=== PATIENT | male | born 1960 | race Caucasian/White ===

== ENCOUNTER 2017-11-10 15:36 | Emergency (ER) | payer OTHER | END 2017-11-10 17:35 | disposition home or self-care (01) | LOC: ER 15:36 | DX: S66.919A Strain of unspecified muscle, fascia and tendon at wrist and hand level, unspecified hand, initial encounter (principal); I10 Essential (primary) hypertension; I25.10 Atherosclerotic heart disease of native coronary artery without angina pectoris; N40.0 Benign prostatic hyperplasia without lower urinary tract symptoms; F10.10 Alcohol abuse, uncomplicated; X50.9XXA Other and unspecified overexertion or strenuous movements or postures, initial encounter; Y93.89 Activity, other specified; Y99.8 Other external cause status; Y92.89 Other specified places as the place of occurrence of the external cause | CPT/HCPCS: 73090; 73110; 99284 ==

== ENCOUNTER 2017-12-24 16:29 | Emergency (ER) | payer OTHER ==
[2017-12-24 16:50] LABS: ADD MAN DIFF? NO
[2017-12-24 16:53] LABS: BASO # 0.1 x10^3/uL (0.0-0.2); BASO % 1 % (0-3); EOS # 0.2 x10^3/uL (0.0-0.7); EOS % 3 % (0-3); HEMATOCRIT 43.8 % (39.0-53.0); LYMPH # 2.4 x10^3/uL (1.0-4.8); LYMPH % 35 % (24-48); MEAN CORPUSCULAR HEMOGLOBIN 32 pg (25-35); MEAN CORPUSCULAR HGB CONC 34 g/dL (31-37); MEAN CORPUSCULAR VOLUME 92 fL (79-100); MONO # 0.6 x10^3/uL (0.0-1.1); MONO % 9 % (0-9); NEUT # 3.6 x10^3uL (1.8-7.7); NEUT % 52 % (31-73); PLATELET COUNT 265 x10^3/uL (140-400); RED BLOOD COUNT 4.76 x10^6/uL (4.30-5.70); RED CELL DISTRIBUTION WIDTH 14.1 % (11.5-14.5); WHITE BLOOD COUNT 6.8 x10^3/uL (4.0-11.0)
[2017-12-24 17:02] LABS: PARTIAL THROMBOPLASTIN TIME 28 SEC (24-38); PROTHROMBIN TIME PATIENT 12.7 SEC (11.7-14.0)
[2017-12-24 17:03] LABS: ETHANOL 218 mg/dL (0-10)
[2017-12-24 17:08] LABS: ALBUMIN 3.2 g/dL (3.4-5.0); ALK PHOS 153 U/L (46-116); ALT (SGPT) 26 U/L (16-63); ANION GAP 12 (6-14); AST (SGOT) 29 U/L (15-37); BLOOD UREA NITROGEN 9 mg/dL (8-26); CALCIUM 8.2 mg/dL (8.5-10.1); CARBON DIOXIDE 24 mmol/L (21-32); CHLORIDE 102 mmol/L (98-107); CREATININE 0.8 mg/dL (0.7-1.3); DIRECT BILIRUBIN 0.1 mg/dL (0.0-0.2); GFR 100.7; GLUCOSE 90 mg/dL (70-99); SODIUM 138 mmol/L (136-145); TOTAL BILIRUBIN 0.4 mg/dL (0.2-1.0); TOTAL PROTEIN 7.4 g/dL (6.4-8.2)
[2017-12-24 17:11] LABS: LACTIC ACID 1.9 mmol/L (0.4-2.0)
[2017-12-24 17:11] LABS: POTASSIUM 2.8 mmol/L (3.5-5.1)
[2017-12-24] MEDS: MIDAZOLAM 100mg/100ml NS BAG 100 ML IV (17:13)
[2017-12-24] MEDS: MIDAZOLAM 100MG/100ML PREMIX 100 ML IV (17:13)
[2017-12-24 17:35] LABS: BILIRUBIN,URINE NEGATIVE (NEG); CLARITY,URINE CLEAR; COLOR,URINE YELLOW; GLUCOSE,URINE NEGATIVE (NEG); NITRITE,URINE NEGATIVE (NEG); PROTEIN,URINE NEGATIVE (NEG-TRACE); UROBILINOGEN,URINE 0.2 mg/dL (0.2 mg/dL)
[2017-12-24] MEDS: IV NORMAL SALINE 1000ML BAG 1,000 ML IV ×2 (17:35)
[2017-12-24] MEDS ORDERED: DIPHTH,PERTUSS(ACELL),TET TOX 0.5 ML DISP.SYRIN. VAX IM ×2 (17:36)
[2017-12-24] MEDS: ONDANSETRON PF 4 MG/2 ML VIAL. IV ×2 (17:38)
[2017-12-24 17:42] LABS: AMPHETAMINE/METHAMPHETAMINE POS (NEG); BACTERIA,URINE 0 /HPF (0-FEW); BARBITURATES NEG (NEG); BENZODIAZEPINES NEG (NEG); CANNABINOIDS POS (NEG); COCAINE NEG (NEG); ETHANOL, URINE POS (NEG); METHADONE NEG (NEG); OPIATES NEG (NEG); PHENCYCLIDINE NEG (NEG); RBC,URINE OCC /HPF (0-2); SQUAMOUS EPITHELIAL CELL,UR OCC /LPF; WBC,URINE 0 /HPF (0-4)
[2017-12-24] MEDS: DIPHTH,PERTUSS(ACELL),TET TOX 0.5 ML DISP.SYRIN. VAX IM ×2 (17:45)
[2017-12-24 17:53] LABS: BASE EXCESS ABG -2 mmol/L (-3-3); HCO3 ABG 23 mmol/L (21-28); PCO2 ABG 40 mmHg (35-46); PH ABG 7.37 (7.35-7.45); PO2 ABG 451 mmHg (75-108); SAT O2 ABG 99 % (92-99)
[2017-12-24 18:03] LABS: MAGNESIUM 2.1 mg/dL (1.8-2.4)
[2017-12-24] MEDS: POTASSIUM CL 40MEQ IN 0.9%NACL 1,000 ML IV (18:03)
[2017-12-24 18:24] LABS: POC GLUCOSE 80 mg/dL (70-99)
[2017-12-24] MEDS: PROPOFOL 50 ML IV ×2 (18:47)
[2017-12-24] MEDS ORDERED: ETOMIDATE 20 MG/10 ML VIAL. IV ×2 (20:07)
[2017-12-24] MEDS ORDERED: MIDAZOLAM HCL/PF 5 MG/5 ML VIAL. ×2 (20:08)
[2017-12-24] MEDS ORDERED: SUCCINYLCHOLINE 200 MG/10 ML VIAL. ×2 (20:08)
== END 2017-12-24 19:03 | disposition short-term general hospital (02) ==
LOC: ER 16:29
DX: S06.9X9A Unspecified intracranial injury with loss of consciousness of unspecified duration, initial encounter (principal); S09.90XA Unspecified injury of head, initial encounter (principal); J96.90 Respiratory failure, unspecified, unspecified whether with hypoxia or hypercapnia; I25.10 Atherosclerotic heart disease of native coronary artery without angina pectoris; F10.29 Alcohol dependence with unspecified alcohol-induced disorder; F10.229 Alcohol dependence with intoxication, unspecified; N40.0 Benign prostatic hyperplasia without lower urinary tract symptoms; I10 Essential (primary) hypertension; Z87.440 Personal history of urinary (tract) infections; F10.10 Alcohol abuse, uncomplicated; W22.8XXA Striking against or struck by other objects, initial encounter; Y93.89 Activity, other specified; Y99.8 Other external cause status; Y92.89 Other specified places as the place of occurrence of the external cause
CPT/HCPCS: 31500; 36415; 36600; 51702; 70450; 70486; 71045; 72125; 80048; 80076; 80307; 81001; 82805; 82962; 83605; 83735; 85025; 85610; 85730; 86850; 86900; 86901; 90471; 90715; 93005; 94002; 96365; 96368; 96375; 99284; 99291; G0480; J2250; J2405; J2704; J3480; J7030

== ENCOUNTER 2018-02-24 00:40 | Emergency (ER) | payer SELFPAY, OTHER ==
[2018-02-24] MEDS: HYDROcodone/APAP 5/325MG 1 TAB TABLET PO (01:40)
== END 2018-02-24 03:37 | disposition home or self-care (01) ==
LOC: ER 00:40
DX: S02.2XXA Fracture of nasal bones, initial encounter for closed fracture (principal); I25.10 Atherosclerotic heart disease of native coronary artery without angina pectoris; I10 Essential (primary) hypertension; F10.10 Alcohol abuse, uncomplicated; Y08.89XA Assault by other specified means, initial encounter; Y93.89 Activity, other specified; Y92.89 Other specified places as the place of occurrence of the external cause; Y99.8 Other external cause status
CPT/HCPCS: 70450; 70486; 99284

== ENCOUNTER 2019-05-29 20:38 | Emergency (ER) | payer SELFPAY ==
[~2019-05-29] VITALS: Ht 182.9 cm; Wt 104.3 kg
[~2019-05-29 20:38] MED LIST: AMLO5TAB4 PO; ASPI-630 PO; ATOR40TA59 PO; CLOP75TA57 PO; DICL2.5D EACHEYE; FLUO10CA13 PO; FLUO20TA11 PO; FLUT16SP NS; GABA300C18 PO; HYDR25CA PO; OXYC1TAB22 PO; OXYC1TAB7 PO; TAMS0.4C2 PO; TRAM50TA PO
[2019-05-29] MEDS ORDERED: LIDOCAINE 1% Multi-Dose 20 ML VIAL. ONE (20:55)
[2019-05-29 20:59] VITALS: BP 152/89
[2019-05-29] MEDS ORDERED: LIDOCAINE 2% 20 ML VIAL. IJ ONE (21:00)
--- NOTE | 2019-05-29 21:22 | PHYS DOC ---
Past Medical History Past Medical History: Abscess Additional Past Medical Histor: BPH Past Surgical History: Other Additional Past Surgical Histo: 2 STENTS PLACED, ABD SX, facial sx, nasal sx, knee sx, hip sx, hand sx Alcohol Use: Heavy Drug Use: Marijuana, Methamphetamine Adult General Chief Complaint Chief Complaint: HAND PROBLEM HPI HPI 58 year old male presents to the ER with lacerations to left index and middle finger just prior to arrival. Patient states he was working with a lawnmower trying to adjust the blade and subsequently cut his fingers. Unknown last tetanus shot. No allergies to medications. Patient does state he has been drinking today. He has a history of methamphetamine use. Patient was able to feel the tips of his fingers on examination. Patient has a chest pain, shortness breath, nausea, vomiting, abdominal pain, headache or visual changes All other ROS negative unless documented in HPI Review of Systems Review of Systems See Above Current Medications Current Medications Current Medications Medications (Trade) Dose Ordered Sig/Katherine Start Time Stop Time Status Last Admin Dose Admin Cefazolin Sodium 50 ml @ 100 mls/hr 1X ONCE 05/29/19 21:15 05/29/19 21:44 DC 05/29/19 22:15 100 MLS/HR Diphtheria/ Tetanus/Acell Pertussis (Boostrix) 0.5 ml ONCE ONCE 05/29/19 22:15 05/29/19 22:16 DC Lidocaine HCl (Lidocaine 1% 20ml Vial) 20 ml STK-MED ONCE 05/29/19 20:55 05/29/19 20:55 DC Allergies Allergies Allergies Coded Allergies Type Severity Reaction Last Updated Verified No Known Drug Allergies 06/24/15 No Physical Exam Physical Exam See Above Constitutional: Well developed, well nourished, non-toxic appearance. [] Cardiovascular:Heart rate regular rhythm, no murmur [] Lungs & Thorax: Bilateral breath sounds clear to auscultation [] Abdomen: Bowel sounds normal, soft, no tenderness, no masses, no pulsatile masses. [] Skin: Warm, dry, no erythema, no rash. [] Extremities: No tenderness, no cyanosis, no edema. Left hand examination reveals laceration appreciated to the index finger and middle finger on the volar aspect of his hand. The middle finger laceration is just above the PIP joint through the tip of his finger, index finger is distal to the DIP through the nail[] Neurologic: Alert and oriented X 3, no focal deficits noted. [] Psychologic: Affect normal, judgement normal, mood normal. [] Current Patient Data Vital Signs Vital Signs Date Time Temp Pulse Resp B/P (MAP) Pulse Ox O2 Delivery O2 Flow Rate FiO2 05/29/19 20:59 98.3 106 18 152/89 (110) 95 Room Air 98.3 EKG EKG [] Radiology/Procedures Radiology/Procedures [facility] [address] [id number] IMAGING REPORT Signed PATIENT: SAVANNAH MOHAN ACCOUNT: [id number] : 1960 LOCATION: ER AGE: 58 SEX: M EXAM STATUS: PRE ER ORD. PHYSICIAN: SHAHRIAR ESPARZA MD REASON: partial amputation of left middle finger and laceration to first digit PROCEDURE: HAND LEFT 2V Indication:Laceration to first digit. TECHNIQUE: 2 views of left hand COMPARISON: None FINDINGS/ impression: Moderately displaced fracture is seen of the distal aspect of the distal phalanx of the third and fourth finger. Moderate first MCP joint osteoarthritis. 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 Electronically signed by: Dylan Smith DO (05/29/2019 9:32 PM) [facility] DICTATED and SIGNED BY: DYLAN SMITH DO DATE: 05/29/192131 [] Course & Med Decision Making Course & Med Decision Making Pertinent Labs and Imaging studies reviewed. (See chart for details) []58 year old male presents to the ER with lacerations to left index and middle finger just prior to arrival. Patient states he was working with a lawnmower trying to adjust the blade and subsequently cut his fingers. Unknown last tetanus shot. No allergies to medications. Patient does state he has been drinking today. He has a history of methamphetamine use. Patient was able to feel the tips of his fingers on examination. Patient has a chest pain, shortness breath, nausea, vomiting, abdominal pain, headache or visual changes X-ray reveals evidence of moderately displaced fracture of the distal aspect of the third and fourth distal phalanx. There is evidence of open fracture appreciated to the middle finger. 1 g Ancef provided IV, irrigation with copious amounts of saline. We'll contact [facility] for hand surgeon refrigeration system installer for transfer. Discussed with triage nurse, awaiting call from hand surgeon Dr. Murguia. , discussed with Dr. Murguia patient will be transferred to [facility] emergency department, they will see him in the ER. Patient will remain nothing by mouth, he received 1 dose of Ancef as previously discussed. Patient requested POV at this time from my standpoint perfectly appropriate given his financial concerns. Dragon Disclaimer Dragon Disclaimer This electronic medical record was generated, in whole or in part, using a voice recognition dictation system. Departure Departure Impression: Primary Impression: Partial traumatic metacarpophalangeal amputation of unspecified finger, initial encounter Disposition: 05 TRANSFER OTHER Condition: STABLE Referrals: VENU BROWN MD (PCP) Patient Instructions: Fingertip Injuries and Amputations Additional Instructions: Transferred to [facility] emergency department Take antibioitics, if prescribed as directed Remain nothing by mouth SHAHRIAR ESPARZA MD May 29, 2019 21:22
--- NOTE | 2019-05-29 21:35 | RAD ---
Indication:Laceration to first digit. TECHNIQUE: 2 views of left hand COMPARISON: None FINDINGS/ impression: Moderately displaced fracture is seen of the distal aspect of the distal phalanx of the third and fourth finger. Moderate first MCP joint osteoarthritis. 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 Electronically signed by: Dylan Smith DO (05/29/2019 9:32 PM) [facility]
[2019-05-29] MEDS ORDERED: DIPHTH,PERTUSS(ACELL),TET TOX 0.5 ML DISP.SYRIN. VAX IM ONE (22:15)
== END 2019-05-29 23:21 | disposition short-term general hospital (02) ==
LOC: ER 20:38
DX: S62.633A Displaced fracture of distal phalanx of left middle finger, initial encounter for closed fracture (principal); S62.635A Displaced fracture of distal phalanx of left ring finger, initial encounter for closed fracture; Z95.5 Presence of coronary angioplasty implant and graft; F10.20 Alcohol dependence, uncomplicated; Y90.9 Presence of alcohol in blood, level not specified; W31.89XA Contact with other specified machinery, initial encounter; Y93.H2 Activity, gardening and landscaping; Y92.89 Other specified places as the place of occurrence of the external cause; Y99.8 Other external cause status
CPT/HCPCS: 73120; 90471; 90715; 96365; 99285; J0690

== ENCOUNTER 2019-10-19 13:54 | Emergency (ER) | payer SELFPAY ==
[~2019-10-19] VITALS: Ht 182.9 cm; Wt 104.5 kg
[2019-10-19 14:06] VITALS: BP 168/112
[2019-10-19] MEDS ORDERED: methylPREDNISolone SOD SUCC PF 125 MG/2 ML VIAL. IM STA (14:10)
[2019-10-19] MEDS ORDERED: MORPHINE SULFATE 10 MG/ML VIAL. SQ STA (14:10)
--- NOTE | 2019-10-19 14:31 | PHYS DOC ---
Past Medical History Past Medical History: Abscess, Sciatica Additional Past Medical Histor: BPH Past Surgical History: Other Additional Past Surgical Histo: 2 STENTS PLACED, ABD SX, facial sx, nasal sx, knee sx, hip sx, hand sx Smoking Status: Current Every Day Smoker Alcohol Use: Heavy Drug Use: Marijuana, Methamphetamine Adult General Chief Complaint Chief Complaint: HIP PAIN HPI HPI Patient is a 58 year old male who presents with right hip pain that he states has been ongoing since Wednesday and getting worse. He states that he was barely able to get out of bed on Wednesday and then states the pain was excruciating today. He reports the pain is in his right lower back and radiating down his leg. States he does have a history of back issues. Reports his pain as 8 out of 10 in severity and sharp. Denies trauma. Denies additional symptoms. Complete ROS were reviewed and found to be within normal limits, except as documented in the HPI Current Medications Current Medications Current Medications Medications (Trade) Dose Ordered Sig/Katherine Start Time Stop Time Status Last Admin Dose Admin Methylprednisolone Sodium Succinate (SOLU-Medrol 125MG VIAL) 125 mg 1X STAT 10/19/19 14:10 10/19/19 14:14 DC 10/19/19 14:21 125 MG Morphine Sulfate (Morphine Sulfate) 10 mg 1X STAT 10/19/19 14:10 10/19/19 14:14 DC 10/19/19 14:22 10 MG Allergies Allergies Allergies Coded Allergies Type Severity Reaction Last Updated Verified No Known Drug Allergies 06/24/15 No Physical Exam Physical Exam Constitutional: Well developed, well nourished, no acute distress, non-toxic appearance. [] HENT: Normocephalic, atraumatic, bilateral external ears normal, oropharynx moist, no oral exudates, nose normal. [] Eyes: PERRLA, EOMI, conjunctiva normal, no discharge. [] Neck: Normal range of motion, no tenderness, supple, no stridor. [] Cardiovascular:Heart rate regular rhythm, no murmur [] Lungs & Thorax: Bilateral breath sounds clear to auscultation [] Abdomen: Bowel sounds normal, soft, no tenderness, no masses, no pulsatile masses. [] Skin: Warm, dry, no erythema, no rash. [] Back: No tenderness, no CVA tenderness. [] Extremities: Lower right back tenderness on palpation. Neurologic: Alert and oriented X 3, normal motor function, normal sensory function, no focal deficits noted. [] Psychologic: Affect normal, judgement normal, mood normal. [] Current Patient Data Vital Signs Vital Signs Date Time Temp Pulse Resp B/P (MAP) Pulse Ox O2 Delivery O2 Flow Rate FiO2 10/19/19 14:22 16 99 Room Air 10/19/19 14:06 98.6 103 168/112 (130) 98.6 EKG EKG [] Radiology/Procedures Radiology/Procedures [] Course & Med Decision Making Course & Med Decision Making Pertinent Labs and Imaging studies reviewed. (See chart for details) Will give Solumedrol and SubQ morphine. Patient pain has improved after medications. Will d/c home with steroids, [place], and Norflex. Patient is agreeable with plan. Looked up patient on [facility] prior to prescribing. Dragon Disclaimer Dragon Disclaimer This electronic medical record was generated, in whole or in part, using a voice recognition dictation system. Departure Departure Impression: Primary Impression: Sciatic leg pain Disposition: HOME, SELF-CARE Condition: STABLE Referrals: VENU BROWN MD (PCP) Patient Instructions: Sciatica Additional Instructions: Thank you for visiting [facility]. We appreciate you trusting us with your care. If any additional problems come up don't hesitate to return to visit us. Please follow up with your primary care provider so they can plan additional care if needed and know about the problem that you had. If symptoms worsen come back to the Emergency Department. Any concerning symptoms that start such as chest pain, shortness of air, weakness or numbness on one side of the body, running high fevers or any other concerning symptoms return to the ER. Please fill your medications at any pharmacy and follow the prescription ins tructions. Scripts Orphenadrine Citrate (ORPHENADRINE CITRATE) 100 Mg Tablet.er 100 MG PO HS PRN for MUSCLE PAIN for 10 Days, #10 TAB.SR Prov: SAVANNAH MEIER APRN 10/19/19 Hydrocodone/Apap 5-325 (NORCO 5-325 TABLET) 1 Each Tablet 1 TAB PO PRN Q6HRS PRN for PAIN for 3 Days, #10 TAB 0 Refills Prov: SAVANNAH MEIER APRN 10/19/19 Methylprednisolone (MEDROL) 4 Mg Tab.ds.pk 1 PKG PO UD, #1 PKG Prov: SAVANNAH MEIER APRN 10/19/19 SAVANNAH MEIER APRN Oct 19, 2019 14:31
[2019-10-19] MEDS ORDERED: METH4TAB2 PO (14:54)
[2019-10-19] MEDS ORDERED: HYDR-3164 PO (14:54)
[2019-10-19] MEDS ORDERED: ORPH100T PO (14:54)
== END 2019-10-19 15:26 | disposition home or self-care (01) ==
LOC: ER 13:54
DX: M54.41 Lumbago with sciatica, right side (principal); M25.551 Pain in right hip; F12.90 Cannabis use, unspecified, uncomplicated; F15.10 Other stimulant abuse, uncomplicated; F10.10 Alcohol abuse, uncomplicated; F17.200 Nicotine dependence, unspecified, uncomplicated; Z98.890 Other specified postprocedural states
CPT/HCPCS: 96372; 99284; J2270; J2930

== ENCOUNTER → 2020-04-23 | Outpatient (CLI) | payer BC ==
[~2020-04-23] MED LIST changes: +HYDR-3164 PO; +METH4TAB2 PO; +NABU500T PO; +ORPH100T PO; +PREG150C PO; +REGADENOSON 0.4 MG/5 ML DISP.SYRIN. IV ONE
--- NOTE | 2020-04-23 17:36 | RAD ---
MR#: [id number] Date of Study: 04/23/2020 Ordering Physician: JOHN BARRERA, Referring Physician: JUSTIN ZAVALETA Tech: RT Martin (Timur) (N) APPROVED REPORT Test Type: Pharmacological Stress Nurse/Tech: Cristina Jiménez R.N. Test Indications: CAD, c/p Cardiac History: cardiac stents,htn,smoker Medications: See Electronic Medical Record Medical History: See Electronic Medical Record Resting ECG: SR inverted P wave in leads AVR,AVL,V1& V2 Resting Heart Rate: 85 bpm Resting Blood Pressure: 120/77mmHg Pretest Chest Pain: No chest pain Nurse/Tech Notes S1S2, lungs CTA Consent: The procedure was explained to the patient in lay terms. Informed consent was witnessed. Justin eout was entered into [employer]. History and Stress Test performed by RT aTwana Salazar) (N) Pharm. Details Pharmacologic stress testing was performed using 0.4mg per 5ml of regadenoson given intravenously ove r 7-10 seconds. Stress Symptoms SOA, c/p scale of 10/10 across middle of chest. he states it does feel like the pain he has been get ting with activities. pain resolved by the end of recovery period. paged Franck GALDAMEZ to notify him of these results POST EXERCISE Reason for Termination: Infusion complete Max HR: 92 bpm Max Blood Pressure: 113/66mmHg Blood Pressure response to exercise: Abnormal blood pressure response during stress- significant drop at first Heart Rate response to exercise: wnl Chest Pain: Yes. see above note Arrhythmia: No. INTERPRETATION Stress EKG Conclusion: The resting EKG shows a sinus rhythm with nonspecific ST-T wave changes. With stress the patient's EKG showed further ST segment depression in the lateral leads. EKG changes with stress that are suggestive but not diagnostic of ischemia. Imaging Protocol IMAGE PROTOCOL: Rest Tc-99m/stress Tc-99m 1 day Rest: Stress: Viability: Radiopharm.Tc99m [id number] Sestamibi Fvnx29eZe 33mCi Duration 15min. 15min. Img Date 04/23/2020 04/23/2020 Inj-Img [id number]. 60min. Rest Admin Site:IV - Left AntecubitalAdministrator:Eitan Castle RT (R)(N) Stress Admin Site: IV - Left AntecubitalAdministrator: RT Martin (R)(N) STRESS DATA End Diast. Vol.128.0mlAv. Heart Rate93.0bpm End Syst. Vol.36.0mlCO Index BSA0.0L/min Myocardial Pyqo102.0gEject. Fflozmgd51.0% Stress Rates Pk. Fill Rate4.33EDV/secLVtime Pk. Fill 183.77msec Pk. Empty Rate5.69ESV/secLVtime Pk. Rkvey463.75msec 09/08 Pk. Fill1.43EDV/sec Stress Scores Regional WT0.00Summed WT2.00 Regional WM0.00Summed WM0.00 LV Perfusion The stress scans shows a moderate inferior wall defect. The rest scans show a mild inferior wall defect. Nuclear imaging is suggestive of an area of a least partially reversible ischemia in the inferior wal l. Wall Motion Left ventricular systolic function is normal with no regional wall motion abnormalities and an ejecti on fraction of greater than 70%. LV Perf. Quant 17 Seg. SSS8.00 17 Seg. SRS6.00 17 Seg. SDS4.00 Stress Defect Extent (% LAD)0.00Rest Defect Extent (% LAD)0.00Rev. Defect Extent (% LAD)0.00 Stress Defect Extent (% LCX) 13.80Rest Defect Extent (% LCX)12.50Rev. Defect Extent (% LCX)13.80 Stress Defect Extent (% RCA)62.20Rest Defect Extent (% RCA)46.70Rev. Defect Extent (% RCA)62.20 Stress Defect Extent (% BAILEE)18.00Rest Defect Extent (% BAILEE)13.30Rev. Defect Extent (% BAILEE)18.00 Conclusion 1. Chest pain with infusion. 2. EKG changes with stress that are suggestive of reversible ischemia. 3. Nuclear imaging shows an area of at least partially reversible ischemia in the inferior wall. 4. Normal left ventricular systolic function with an ejection fraction of greater than 70%. 5. Moderately high risk scan suggestive of inferior wall reversible ischemia. Signed by : John Barrera MD Electronically Approved : 04/23/2020 17:36:39
== END | disposition home or self-care (01) ==
LOC: NM 09:00
PROVIDERS: ATTEND Internal Medicine Cardiovascular Disease
DX: I25.10 Atherosclerotic heart disease of native coronary artery without angina pectoris (principal); I10 Essential (primary) hypertension; F17.200 Nicotine dependence, unspecified, uncomplicated; Z95.0 Presence of cardiac pacemaker
CPT/HCPCS: 78452; 93017; A9500; J2785

== ENCOUNTER 2020-04-24 09:26 | Inpatient (IN) | payer BC ==
[2020-04-24] VITALS (14 sets, daily range): BP systolic 82–117; BP diastolic 54–82
[~2020-04-24] VITALS: Ht 182.9 cm; Wt 105.9 kg
[~2020-04-24 09:26] MED LIST changes: -NABU500T PO; -PREG150C PO; -REGADENOSON 0.4 MG/5 ML DISP.SYRIN. IV ONE
[2020-04-24] MEDS ORDERED: fentaNYL PF VIAL 100 MCG/2 ML VIAL IV ONE (10:00)
[2020-04-24] MEDS ORDERED: ASPIRIN CHEWABLE 81 MG TABLET. PO ONE (10:00)
[2020-04-24] MEDS ORDERED: ONDANSETRON PF 4 MG/2 ML VIAL. IV ONE (10:00)
[2020-04-24 10:03] LABS: BASO # 0.1 x10^3/uL (0.0-0.2); BASO % 1 % (0-3); EOS # 0.3 x10^3/uL (0.0-0.7); EOS % 4 % (0-3); HEMATOCRIT 41.7 % (39.0-53.0); HEMOGLOBIN 14.2 g/dL (13.0-17.5); LYMPH # 2.3 x10^3/uL (1.0-4.8); LYMPH % 33 % (24-48); MEAN CORPUSCULAR HEMOGLOBIN 33 pg (25-35); MEAN CORPUSCULAR HGB CONC 34 g/dL (31-37); MEAN CORPUSCULAR VOLUME 98 fL (79-100); MONO # 0.7 x10^3/uL (0.0-1.1); MONO % 10 % (0-9); NEUT # 3.5 x10^3/uL (1.8-7.7); NEUT % 52 % (31-73); PLATELET COUNT 205 x10^3/uL (140-400); RED BLOOD COUNT 4.26 x10^6/uL (4.30-5.70); RED CELL DISTRIBUTION WIDTH 14.8 % (11.5-14.5); WHITE BLOOD COUNT 6.8 x10^3/uL (4.0-11.0)
[2020-04-24 10:24] LABS: CALCIUM 8.1 mg/dL (8.5-10.1); POTASSIUM 3.2 mmol/L (3.5-5.1)
[2020-04-24 10:30] LABS: ALBUMIN 2.8 g/dL (3.4-5.0); ALBUMIN/GLOBULIN RATIO 0.8 (1.0-1.7); TOTAL BILIRUBIN 0.3 mg/dL (0.2-1.0); TOTAL PROTEIN 6.5 g/dL (6.4-8.2)
[2020-04-24] MEDS ORDERED: IV NORMAL SALINE 1000ML BAG 1,000 ML IV ONE (10:30)
--- NOTE | 2020-04-24 10:52 | RAD ---
EXAM: CHEST 1 VIEW History: Chest pain COMPARISON: 12/24/2017 TECHNIQUE: Single portable radiograph of the chest FINDINGS: Low lung volumes and technique accentuates heart size and pulmonary vascularity. Mild left lung base airspace opacity. The costophrenic sulci are clear and well demarcated. IMPRESSION: Mild left lung base airspace opacities likely atelectasis or infiltrates. Electronically signed by: Carlos Lee MD (04/24/2020 10:50 AM) [id number]
[2020-04-24] MEDS ORDERED: HEPARIN for IV BOLUS 10,000 UNIT/10 ML VIAL. IV ONE (11:00)
[2020-04-24] MEDS ORDERED: NITROGLYCERIN OINT 1 GM PACKET. TP ONE (11:00)
[2020-04-24] MEDS: HEPARIN 25,000UTS/250ML PREMIX 250 ML IV PRN (11:11)
--- NOTE | 2020-04-24 11:35 | PDOC2 ---
CARDIAC CONSULT DATE OF CONSULT Date of Consult DATE: 04/24/20 TIME: 11:27 REASON FOR CONSULT Reason for Consult: Chest pain REFERRING PHYSICIAN Referring Physician: Dr. Moss SOURCE Source: Chart review, Patient HISTORY OF PRESENT ILLNESS HISTORY OF PRESENT ILLNESS This is a 59 yo male who presented secondary to chest pain. Patient reports intermittent chest pain for the last couple of week. Located in his central chest. Describes as tightness. Mostly associated with exertional activities. Resolved with rest. Associated with shortness of breath and diaphoresis. Underwent outpatient stress test yesterday that was abnormal. Patient was to be scheduled for outpatient heart catheterization. This morning, patient woke up feeling well. Mid-morning, chest tightness returned. Was short of breath, dizzy, diaphoretic, and nauseated. No palpitations. Due to recurrent chest pain, patient came to the ED for further evaluation and treatment. Trop noted to be elevated upon arrival. Heparin gtt was initiated and nitro paste applied to chest wall. Unfortunately, patient admits to smoking methamphetamines yesterday evening. PAST MEDICAL HISTORY Cardiovascular: CAD, HTN, Hyperlipidemia Hepatobiliary: Hep A/B/C (C, treated ) Renal/: Benign prostatic enlarg. PAST SURGICAL HISTORY Past Surgical History: Other (PCI/stents, left wrist surgery, bladder surgery, back surgery, facial reconstruction, right knee surgery ) FAMILY HISTORY Family History: Coronary Artery Disease (father ), High Cholestrol, Hypertension SOCIAL HISTORY Smoke: <1 pack per day ALCOHOL: other (5-6 beers daily ) Drugs: Marijuana, Crystal meth (used last night ) Lives: with Family CURRENT MEDICATIONS CURRENT MEDICATIONS Current Medications Medications (Trade) Dose Ordered Sig/Katherine Route PRN Reason Start Time Stop Time Status Last Admin Dose Admin Fentanyl Citrate (Fentanyl 2ml Vial) 50 mcg 1X ONCE IV 04/24/20 10:00 04/24/20 10:01 DC 04/24/20 10:19 Ondansetron HCl (Zofran) 4 mg 1X ONCE IV 04/24/20 10:00 04/24/20 10:01 DC 04/24/20 10:08 Sodium Chloride 1,000 ml @ 1,000 mls/hr 1X ONCE IV 04/24/20 10:30 04/24/20 11:29 04/24/20 10:22 Heparin Sodium (Porcine) (Heparin Sodium) 4,000 unit 1X ONCE IV 04/24/20 11:00 04/24/20 11:01 DC 04/24/20 11:10 Heparin Sodium/ Dextrose 250 ml @ 10 mls/hr CONT PRN IV PER PROTOCOL 04/24/20 11:00 04/24/20 11:11 Nitroglycerin (Nitro-Bid Oint) 1 inch 1X ONCE TP 04/24/20 11:00 04/24/20 11:01 DC 04/24/20 11:16 ALLERGIES ALLERGIES: Coded Allergies: No Known Drug Allergies (Unverified , 06/24/15) ROS Review of System 14 point ROS conducted with pertinent positives noted above in hPI PHYSICAL EXAM General: Alert, Oriented X3, Cooperative, No acute distress HEENT: Atraumatic, Mucous membr. moist/pink Lungs: Clear to auscultation Heart: Regular rate, Normal S1, Normal S2 Abdomen: Soft, No tenderness Extremities: Other (1+ bilateral LE edema ) Skin: No breakdown, No significant lesion Neuro: Normal speech, Sensation intact Psych/Mental Status: Mental status NL, Mood NL MUSCULOSKELETAL: Osteoarthritic changes both hands VITALS/I&O VITALS/I&O: Vital Signs Date Time Temp Pulse Resp B/P (MAP) Pulse Ox O2 Delivery O2 Flow Rate FiO2 04/24/20 11:16 86 102/71 04/24/20 10:28 20 87 Room Air 04/24/20 09:29 97.6 97.6 LABS Lab: Laboratory Tests Test 04/24/20 09:36 White Blood Count 6.8 x10^3/uL (4.0-11.0) Red Blood Count 4.26 x10^6/uL (4.30-5.70) L Hemoglobin 14.2 g/dL (13.0-17.5) Hematocrit 41.7 % (39.0-53.0) Mean Corpuscular Volume 98 fL (79-100) Mean Corpuscular Hemoglobin 33 pg (25-35) Mean Corpuscular Hemoglobin Concent 34 g/dL (31-37) Red Cell Distribution Width 14.8 % (11.5-14.5) H Platelet Count 205 x10^3/uL (140-400) Neutrophils (%) (Auto) 52 % (31-73) Lymphocytes (%) (Auto) 33 % (24-48) Monocytes (%) (Auto) 10 % (0-9) H Eosinophils (%) (Auto) 4 % (0-3) H Basophils (%) (Auto) 1 % (0-3) Neutrophils # (Auto) 3.5 x10^3/uL (1.8-7.7) Lymphocytes # (Auto) 2.3 x10^3/uL (1.0-4.8) Monocytes # (Auto) 0.7 x10^3/uL (0.0-1.1) Eosinophils # (Auto) 0.3 x10^3/uL (0.0-0.7) Basophils # (Auto) 0.1 x10^3/uL (0.0-0.2) Sodium Level 141 mmol/L (136-145) Potassium Level 3.2 mmol/L (3.5-5.1) L Chloride Level 103 mmol/L (98-107) Carbon Dioxide Level 31 mmol/L (21-32) Anion Gap 7 (6-14) Blood Urea Nitrogen 16 mg/dL (8-26) Creatinine 1.0 mg/dL (0.7-1.3) Estimated GFR (Cockcroft-Gault) 77.0 BUN/Creatinine Ratio 16 (6-20) Glucose Level 118 mg/dL (70-99) H Calcium Level 8.1 mg/dL (8.5-10.1) L Total Bilirubin 0.3 mg/dL (0.2-1.0) Aspartate Amino Transferase (AST) 38 U/L (15-37) H Alanine Aminotransferase (ALT) 38 U/L (16-63) Alkaline Phosphatase 111 U/L (46-116) Troponin I Quantitative 1.288 ng/mL (0.000-0.055) RV-Vvn-K-Type Natriuretic Peptide 167 pg/mL (0-124) H Total Protein 6.5 g/dL (6.4-8.2) Albumin 2.8 g/dL (3.4-5.0) L Albumin/Globulin Ratio 0.8 (1.0-1.7) L Laboratory Tests 04/24/20 09:36 Laboratory Tests 04/24/20 09:36 STRESS TEST STRESS TEST Conclusion 1. Chest pain with infusion. 2. EKG changes with stress that are suggestive of reversible ischemia. 3. Nuclear imaging shows an area of at least partially reversible ischemia in the inferior wall. 4. Normal left ventricular systolic function with an ejection fraction of greater than 70%. 5. Moderately high risk scan suggestive of inferior wall reversible ischemia. DATE: 04/23/20 1147 ASSESSMENT/PLAN ASSESSMENT/PLAN 1. Chest pain, ACS; initial trop 1.2 2. CAD s/p previous PCI/stents in 2012 3. Hypertension; controlled 4. Hyperlipidemia; statin 5. Bradycardia, sinus. Lowest 46, no pauses. Appropriate chronotropic response 6. Substance abuse; used methamphetamines last night 7. Tobaccoism 8. Alcohol misuse Recommendations Continue heparin gtt Resume ASA/plavix, statin No BB with bradycardia Echo to assess LV systolic function Discussed/encouraged cessation from meth and tobaccos use Monitor for withdrawal Plan for left heart catheterization tomorrow as patient used methamphetamines late yesterday CECILIO Abraham APRN Apr 24, 2020 11:34
[2020-04-24] MEDS ORDERED: ONDANSETRON PF 4 MG/2 ML VIAL. IV PRN ×2 (11:45→17:00)
--- NOTE | 2020-04-24 11:45 | PHYS DOC ---
Past Medical History Past Medical History: Abscess, ME, Sciatica Additional Past Medical Histor: BPH Past Surgical History: Other Additional Past Surgical Histo: 2 STENTS PLACED, ABD SX, facial sx, nasal sx, knee sx, hip sx, hand sx Smoking Status: Current Every Day Smoker Alcohol Use: Heavy Drug Use: Marijuana, Methamphetamine General Adult EDM: Chief Complaint: CHEST PAIN HPI: HPI: Patient is a 59-year-old male with known coronary disease status post stent x2 in the past who presents with acute onset of right sided chest pain that radiates up to his shoulders. He has been having pain in his chest at home. He had a stress test done yesterday which showed evidence of reversible ischemia but he went home and was pain-free. He did state that he had some pain on the treadmill. He was at rest this morning when the pain occurred. He describes the pain as sharp. Patient also states that he has had unrelenting nausea since his symptoms started this morning. Review of Systems: Review of Systems: Constitutional: Denies fever or chills. [] Eyes: Denies change in visual acuity. [] HENT: Denies nasal congestion or sore throat. [] Respiratory: Denies cough or shortness of breath. [] Cardiovascular: Per HPI [] GI: Reports intractable nausea [] : Denies dysuria. [] Musculoskeletal: Denies back pain or joint pain. [] Integument: Denies rash. [] Neurologic: Denies headache, focal weakness or sensory changes. [] Endocrine: Denies polyuria or polydipsia. [] Lymphatic: Denies swollen glands. [] Psychiatric: Denies depression or anxiety. [] Heart Score: HEART Score for Chest Pain: HEART Score for Chest Pain Response (Comments) Value History Highly Suspicious [address] Depression 2 Age >45 - < 65 1 Risk Factors >3 Risk Factors or Hx CAD 2 Troponin >3 x Normal Limit 2 Total 9 Risk Factors: Risk Factors: DM, Current or recent (<one month) smoker, HTN, HLP, family history of CAD, obesity. Risk Scores: Score 0 - 3: 2.5% MACE over next 6 weeks - Discharge Home Score 4 - 6: 20.3% MACE over next 6 weeks - Admit for Clinical Observation Score 7 - 10: 72.7% MACE over next 6 weeks - Early Invasive Strategies Current Medications: Current Medications Medications (Trade) Dose Ordered Sig/[facility] Start Time Stop Time Status Last Admin Dose Admin Aspirin (Aspirin Chewable) 324 mg 1X ONCE 04/24/20 10:00 04/24/20 10:01 DC Fentanyl Citrate (Fentanyl 2ml Vial) 50 mcg 1X ONCE 04/24/20 10:00 04/24/20 10:01 DC 04/24/20 10:19 50 MCG Heparin Sodium (Porcine) (Heparin Sodium) 4,000 unit 1X ONCE 04/24/20 11:00 04/24/20 11:01 DC 04/24/20 11:10 4,000 UNIT Heparin Sodium/ Dextrose 250 ml @ 10 mls/hr CONT PRN 04/24/20 11:00 04/24/20 11:11 10 MLS/HR Nitroglycerin (Nitro-Bid Oint) 1 inch 1X ONCE 04/24/20 11:00 04/24/20 11:01 DC 04/24/20 11:16 1 INCH Ondansetron HCl (Zofran) 4 mg 1X ONCE 04/24/20 10:00 04/24/20 10:01 DC 04/24/20 10:08 4 MG Sodium Chloride 1,000 ml @ 1,000 mls/hr 1X ONCE 04/24/20 10:30 04/24/20 11:29 DC 04/24/20 10:22 1,000 MLS/HR Allergies: Allergies: Allergies Coded Allergies Type Severity Reaction Last Updated Verified No Known Drug Allergies 06/24/15 No Physical Exam: PE: Constitutional: Well developed, well nourished, no acute distress, non-toxic appearance. [] HENT: Normocephalic, atraumatic, bilateral external ears normal, oropharynx moist, no oral exudates, nose normal. [] Eyes: PERRLA, EOMI, conjunctiva normal, no discharge. [] Neck: Normal range of motion, no tenderness, supple, no stridor. [] Cardiovascular:Heart rate regular rhythm, no murmur [] Lungs & Thorax: Bilateral breath sounds clear to auscultation [] Abdomen: Bowel sounds normal, soft, no tenderness, no masses, no pulsatile masses. [] Skin: Warm, dry, no erythema, no rash. [] Back: No tenderness, no CVA tenderness. [] Extremities: No tenderness, no cyanosis, no clubbing, ROM intact, no edema. [] Neurologic: Alert and oriented X 3, normal motor function, normal sensory function, no focal deficits noted. [] Psychologic: Affect normal, judgement normal, mood normal. [] Current Patient Data: Labs: Laboratory Tests Test 04/24/20 09:36 White Blood Count 6.8 x10^3/uL (4.0-11.0) Red Blood Count 4.26 x10^6/uL (4.30-5.70) L Hemoglobin 14.2 g/dL (13.0-17.5) Hematocrit 41.7 % (39.0-53.0) Mean Corpuscular Volume 98 fL (79-100) Mean Corpuscular Hemoglobin 33 pg (25-35) Mean Corpuscular Hemoglobin Concent 34 g/dL (31-37) Red Cell Distribution Width 14.8 % (11.5-14.5) H Platelet Count 205 x10^3/uL (140-400) Neutrophils (%) (Auto) 52 % (31-73) Lymphocytes (%) (Auto) 33 % (24-48) Monocytes (%) (Auto) 10 % (0-9) H Eosinophils (%) (Auto) 4 % (0-3) H Basophils (%) (Auto) 1 % (0-3) Neutrophils # (Auto) 3.5 x10^3/uL (1.8-7.7) Lymphocytes # (Auto) 2.3 x10^3/uL (1.0-4.8) Monocytes # (Auto) 0.7 x10^3/uL (0.0-1.1) Eosinophils # (Auto) 0.3 x10^3/uL (0.0-0.7) Basophils # (Auto) 0.1 x10^3/uL (0.0-0.2) Sodium Level 141 mmol/L (136-145) Potassium Level 3.2 mmol/L (3.5-5.1) L Chloride Level 103 mmol/L (98-107) Carbon Dioxide Level 31 mmol/L (21-32) Anion Gap 7 (6-14) Blood Urea Nitrogen 16 mg/dL (8-26) Creatinine 1.0 mg/dL (0.7-1.3) Estimated GFR (Cockcroft-Gault) 77.0 BUN/Creatinine Ratio 16 (6-20) Glucose Level 118 mg/dL (70-99) H Calcium Level 8.1 mg/dL (8.5-10.1) L Total Bilirubin 0.3 mg/dL (0.2-1.0) Aspartate Amino Transferase (AST) 38 U/L (15-37) H Alanine Aminotransferase (ALT) 38 U/L (16-63) Alkaline Phosphatase 111 U/L (46-116) Troponin I Quantitative 1.288 ng/mL (0.000-0.055) MF-Lzw-V-Type Natriuretic Peptide 167 pg/mL (0-124) H Total Protein 6.5 g/dL (6.4-8.2) Albumin 2.8 g/dL (3.4-5.0) L Albumin/Globulin Ratio 0.8 (1.0-1.7) L Laboratory Tests 04/24/20 09:36 Laboratory Tests 04/24/20 09:36 Vital Signs: Vital Signs Date Time Temp Pulse Resp B/P (MAP) Pulse Ox O2 Delivery O2 Flow Rate FiO2 04/24/20 11:28 100 12 112/74 (87) 94 Room Air 04/24/20 09:29 97.6 97.6 EKG: EKG: EKG: Patient has ST depression anterior septal otherwise normal sinus rhythm rate of 50 [] Radiology/Procedures: Radiology/Procedures: [] Impression: REASON: chest pain PROCEDURE: CHEST AP ONLY EXAM: CHEST 1 VIEW History: Chest pain COMPARISON: 12/24/2017 TECHNIQUE: Single portable radiograph of the chest FINDINGS: Low lung volumes and technique accentuates heart size and pulmonary vascularity. Mild left lung base airspace opacity. The costophrenic sulci are clear and well demarcated. IMPRESSION: Mild left lung base airspace opacities likely atelectasis or infiltrates. Course & Med Decision Making: Course & Med Decision Making Pertinent Labs and Imaging studies reviewed. (See chart for details) [ED course: Evaluation reveals a 59-year-old male with typical sounding chest discomfort. He was given fentanyl and Zofran initially which helped alleviate his symptoms his blood pressure then went down into the 70s he was given IV fluids and his blood pressure responded nicely began to have some more pain Nitr opaste was placed as well as he was given a heparin drip and a heparin bolus. Cardiology was contacted. At the time that they were contacted patient stated he was chest pain-free. CRITICAL CARE: Time spent was 35 minutes. This includes medical management, evaluation, reevaluation, discussion with consultants and family. Critical Care does NOT include time spent on separately billed procedures.] Nabila Disclaimer: Dragon Disclaimer: This electronic medical record was generated, in whole or in part, using a voice recognition dictation system. Departure Departure Impression: Primary Impression: NSTEMI (non-ST elevated myocardial infarction) Disposition: ADMITTED INPATIENT Admitting Physician: LEV Condition: GUARDED Referrals: VENU BROWN MD (PCP) Justicifation of Admission Dx: Justifications for Admission: Justification of Admission Dx: Yes ME: Acute NSTEMI FABIÁN HARRIS DO Apr 24, 2020 11:45
--- NOTE | 2020-04-24 11:58 | PDOC1 ---
History and Physical Date of Admission Date of Admission DATE: 04/24/20 TIME: 11:58 Identification/Chief Complaint Chief Complaint Chest pain Source Source: Patient History of Present Illness History of Present Illness Mr Almonte is a a 59 yo male w/ PMHx BPH, HTN, HLD, Hep C in remission, substance use disorder (opioid, meth, ETOH), CAD s/p stent x2 who presented with central and right sided chest pain. Pain is sharp and tight, radiates to his right shoulder and into his back. Worse with exertion initially resolved with rest. Has associated shortness of breath and diaphoresis. He actually had intermittent chest pain for the last couple of weeks. Underwent outpatient stress test yesterday that was abnormal and was getting scheduled for outpatient heart catheterization. However, he was anxious after his stress test yesterday and smoked methamphetamines overnight and then woke up feeling better. Later in the morning, chest tightness returned with above symptoms and came to ED for further evaluation and treatment. Trop 1.2. EKG with ST depression anterior septal with sinus bradycardia Heparin gtt was initiated and nitro paste applied to chest wall. Admitted for further treatment Past Medical History Cardiovascular: CAD, HTN, Hyperlipidemia Hepatobiliary: Hep A/B/C (C, treated ) Renal/: Benign prostatic enlarg. Past Surgical History Past Surgical History: Other (PCI/stents, left wrist surgery, bladder surgery, back surgery, facial reconstruction, right knee surgery ) Family History Family History: High Cholestrol, Hypertension Social History Smoke: 1 pack per day ALCOHOL: heavy Drugs: Crystal meth (history of ) Current Problem List Problem List Problems Medical Problems: (1) NSTEMI (non-ST elevated myocardial infarction) Status: Acute Current Medications Current Medications Current Medications Aspirin (Aspirin Chewable) 324 mg 1X ONCE PO ; Start 04/24/20 at 10:00; Stop 04/24/20 at 10:01; Status DC Fentanyl Citrate (Fentanyl 2ml Vial) 50 mcg 1X ONCE IV Last administered on 04/24/20at 10:19; Start 04/24/20 at 10:00; Stop 04/24/20 at 10:01; Status DC Ondansetron HCl (Zofran) 4 mg 1X ONCE IV Last administered on 04/24/20at 10:08; Start 04/24/20 at 10:00; Stop 04/24/20 at 10:01; Status DC Sodium Chloride 1,000 ml @ 1,000 mls/hr 1X ONCE IV Last administered on 04/24/20at 10:22; Start 04/24/20 at 10:30; Stop 04/24/20 at 11:29; Status DC Heparin Sodium (Porcine) (Heparin Sodium) 4,000 unit 1X ONCE IV Last administered on 04/24/20at 11:10; Start 04/24/20 at 11:00; Stop 04/24/20 at 11:01; Status DC Heparin Sodium/ Dextrose 250 ml @ 10 mls/hr CONT PRN IV PER PROTOCOL Last administered on 04/24/20at 11:11; Start 04/24/20 at 11:00 Nitroglycerin (Nitro-Bid Oint) 1 inch 1X ONCE TP Last administered on 04/24/20at 11:16; Start 04/24/20 at 11:00; Stop 04/24/20 at 11:01; Status DC Ondansetron HCl (Zofran) 4 mg PRN Q8HRS PRN IV NAUSEA/VOMITING; Start 04/24/20 at 11:45; Stop 04/25/20 at 11:44 Fentanyl Citrate (Fentanyl 2ml Vial) 50 mcg PRN Q1HR PRN IV PAIN; Start 04/24/20 at 11:45; Stop 04/25/20 at 11:44 Sodium Chloride 1,000 ml @ 150 mls/hr Q6H40M IV ; Start 04/24/20 at 11:45; Stop 04/25/20 at 11:44 Active Scripts Active Orphenadrine Citrate 100 Mg Tablet.er 100 Mg PO HS PRN 10 Days Camp 5-325 Tablet (Acetaminophen/Hydrocodone Bitart) 1 Each Tablet 1 Tab PO PRN Q6HRS PRN 3 Days Medrol (Methylprednisolone) 4 Mg Tab.ds.pk 1 Pkg PO UD Tramadol Hcl 50 Mg Tablet 1 Tab PO PRN Q6HRS Norvasc (Amlodipine Besylate) 5 Mg Tablet 5 Mg PO DAILY Reported Aspirin 81 Mg Tab.chew Unknown Dose PO DAILY Vistaril (Hydroxyzine Pamoate) 25 Mg Capsule Unknown Dose PO BID Prozac (Fluoxetine Hcl) 10 Mg Capsule Unknown Dose PO DAILYWBKFT Fluoxetine Hcl 20 Mg Tablet 1 Tab PO DAILY Diclofenac Sodium 2.5 Ml Drops 1 Drop EACHEYE QID Atorvastatin Calcium 40 Mg Tablet 1 Tab PO DAILY Gabapentin (Gabapentin) 300 Mg Capsule 1 Cap PO TID Tamsulosin Hcl 0.4 Mg Cap.er.24h 1 Cap PO DAILY Percocet 10-325 Mg Tablet (Oxycodone/Acetaminophen) 1 Each Tablet 1 Tab PO PRN Q6HRS PRN Fluticasone Propionate Nasal [place] (Fluticasone Propionate) 16 Gm [place].susp 2 [place] NS DAILY Plavix (Clopidogrel Bisulfate) 75 Mg Tablet 75 Mg PO DAILY Allergies Allergies: Coded Allergies: No Known Drug Allergies (Unverified , 06/24/15) ROS General: YES: Fatigue, Malaise; No: Chills, Night Sweats, Appetite, Other PSYCHOLOGICAL ROS: No: Anxiety, Behavioral Disorder, Concentration difficultie, Decreased libido, Depression, Disorientation, Hallucinations, Hostility, Irritablity, Memory difficulties, Mood Swings, Obsessive thoughts, Physical abuse, Sexual abuse, Sleep disturbances, Suicidal ideation, Other Eyes: No Blurry vision, No Decreased vision, No Double vision, No Dry eyes, No Excessive tearing, No Eye Pain, No Itchy Eyes, No Loss of vision, No Photophobia, No Scotomata, No Uses contacts, No Uses glasses, No Other HEENT: No: Heacaches, Visual Changes, Hearing change, Nasal congestion, Nasal discharge, Oral lesions, Sinus pain, Sore Throat, Epistaxis, Sneezing, Snoring, Tinnitus, Vertigo, Vocal changes, Other ALLERGY AND IMMUNOLOGY: No: Hives, Insect Bite Sensitivity, Itchy/Watery Eyes, Nasal Congestion, Post Nasal Drip, Seasonal Allergies, Other Hematological and Lymphatic: No: Bleeding Problems, Blood Clots, Blood Transfusions, Brusing, Night Sweats, Pallor, Swollen Lymph Nodes, Other ENDOCRINE: No: Breast Changes, Galactorrhea, Hair Pattern Changes, Hot Flashes, Malaise/lethargy, Mood Swings, Palpitations, Polydipsia/polyuria, Skin Changes, Temperature Intolerance, Unexpected Weight Changes, Other Breast: No New/Changing Breast Lumps, No Nipple changes, No Nipple discharge, No Other Respiratory: YES: Cough; No: Hemoptysis, Orthopnea, Pleuritic Pain, Shortness of breath, SOB with excertion, Sputum Changes, Stridor, Tachypnea, Wheezing, Other Cardiovascular: yes Chest Pain; No Palpitations, No Orthopnea, No Paroxysmal Noc. Dyspnea, No Edema, No Lt Headedness, No Other Gastrointestinal: Yes Nausea; No Vomiting, No Abdominal Pain, No Diarrhea, No Constipation, No Melena, No Hematochezia, No Other Genitourinary: No Dysuria, No Frequency, No Incontinence, No Hematuria, No Retention, No Discharge, No Urgency, No Pain, No Flank Pain, No Other, No , No , No , No , No , No , No Musculoskeletal: No Gait Disturbance, No Joint Pain, No Joint Stiffness, No Joint Swelling, No Muscle Pain, No Muscular Weakness, No Pain In:, No Swelling In:, No Other Neurological: No Behavorial Changes, No Bowel/Bladder ControlChng, No Confusion, No Dizziness, No Gait Disturbance, No Headaches, No Impaired Coord/balance, No Memory Loss, No Numbness/Tingling, No Seizures, No Speech Problems, No Tremors, No Visual Changes, No Weakness, No Other Skin: No Dry Skin, No Eczema, No Hair Changes, No Lumps, No Mole Changes, No Mottling, No Nail Changes, No Pruritus, No Rash, No Skin Lesion Changes, No Other, No Acne Physical Exam General: Alert, Oriented X3, Cooperative, moderate distress HEENT: Atraumatic, PERRLA, EOMI, Mucous membr. moist/pink Lungs: Clear to auscultation, Normal air movement Heart: S1S2, RRR, no thrills, no rubs, no gallops, no murmurs Abdomen: Normal bowel sounds, Soft, No tenderness, No hepatosplenomegaly, No masses Rectal Exam: not examined Skin: No rashes, No breakdown, No significant lesion Neuro: Normal gait, Normal speech, Strength at 5/5 X4 ext, Normal tone, Sensation intact, Cranial nerves 3-12 NL, Reflexes 2+ Psych/Mental Status: Mental status NL, Mood NL Vitals Vitals Vital Signs Date Time Temp Pulse Resp B/P (MAP) Pulse Ox O2 Delivery O2 Flow Rate FiO2 04/24/20 11:28 100 12 112/74 (87) 94 Room Air 04/24/20 09:29 97.6 97.6 Labs Labs Laboratory Tests Test 04/24/20 09:36 White Blood Count 6.8 x10^3/uL (4.0-11.0) Red Blood Count 4.26 x10^6/uL (4.30-5.70) Hemoglobin 14.2 g/dL (13.0-17.5) Hematocrit 41.7 % (39.0-53.0) Mean Corpuscular Volume 98 fL (79-100) Mean Corpuscular Hemoglobin 33 pg (25-35) Mean Corpuscular Hemoglobin Concent 34 g/dL (31-37) Red Cell Distribution Width 14.8 % (11.5-14.5) Platelet Count 205 x10^3/uL (140-400) Neutrophils (%) (Auto) 52 % (31-73) Lymphocytes (%) (Auto) 33 % (24-48) Monocytes (%) (Auto) 10 % (0-9) Eosinophils (%) (Auto) 4 % (0-3) Basophils (%) (Auto) 1 % (0-3) Neutrophils # (Auto) 3.5 x10^3/uL (1.8-7.7) Lymphocytes # (Auto) 2.3 x10^3/uL (1.0-4.8) Monocytes # (Auto) 0.7 x10^3/uL (0.0-1.1) Eosinophils # (Auto) 0.3 x10^3/uL (0.0-0.7) Basophils # (Auto) 0.1 x10^3/uL (0.0-0.2) Sodium Level 141 mmol/L (136-145) Potassium Level 3.2 mmol/L (3.5-5.1) Chloride Level 103 mmol/L (98-107) Carbon Dioxide Level 31 mmol/L (21-32) Anion Gap 7 (6-14) Blood Urea Nitrogen 16 mg/dL (8-26) Creatinine 1.0 mg/dL (0.7-1.3) Estimated GFR (Cockcroft-Gault) 77.0 BUN/Creatinine Ratio 16 (6-20) Glucose Level 118 mg/dL (70-99) Calcium Level 8.1 mg/dL (8.5-10.1) Total Bilirubin 0.3 mg/dL (0.2-1.0) Aspartate Amino Transf (AST/SGOT) 38 U/L (15-37) Alanine Aminotransferase (ALT/SGPT) 38 U/L (16-63) Alkaline Phosphatase 111 U/L (46-116) Troponin I Quantitative 1.288 ng/mL (0.000-0.055) UN-Byb-N-Type Natriuretic Peptide 167 pg/mL (0-124) Total Protein 6.5 g/dL (6.4-8.2) Albumin 2.8 g/dL (3.4-5.0) Albumin/Globulin Ratio 0.8 (1.0-1.7) Laboratory Tests Test 04/24/20 09:36 White Blood Count 6.8 x10^3/uL (4.0-11.0) Red Blood Count 4.26 x10^6/uL (4.30-5.70) Hemoglobin 14.2 g/dL (13.0-17.5) Hematocrit 41.7 % (39.0-53.0) Mean Corpuscular Volume 98 fL (79-100) Mean Corpuscular Hemoglobin 33 pg (25-35) Mean Corpuscular Hemoglobin Concent 34 g/dL (31-37) Red Cell Distribution Width 14.8 % (11.5-14.5) Platelet Count 205 x10^3/uL (140-400) Neutrophils (%) (Auto) 52 % (31-73) Lymphocytes (%) (Auto) 33 % (24-48) Monocytes (%) (Auto) 10 % (0-9) Eosinophils (%) (Auto) 4 % (0-3) Basophils (%) (Auto) 1 % (0-3) Neutrophils # (Auto) 3.5 x10^3/uL (1.8-7.7) Lymphocytes # (Auto) 2.3 x10^3/uL (1.0-4.8) Monocytes # (Auto) 0.7 x10^3/uL (0.0-1.1) Eosinophils # (Auto) 0.3 x10^3/uL (0.0-0.7) Basophils # (Auto) 0.1 x10^3/uL (0.0-0.2) Sodium Level 141 mmol/L (136-145) Potassium Level 3.2 mmol/L (3.5-5.1) Chloride Level 103 mmol/L (98-107) Carbon Dioxide Level 31 mmol/L (21-32) Anion Gap 7 (6-14) Blood Urea Nitrogen 16 mg/dL (8-26) Creatinine 1.0 mg/dL (0.7-1.3) Estimated GFR (Cockcroft-Gault) 77.0 BUN/Creatinine Ratio 16 (6-20) Glucose Level 118 mg/dL (70-99) Calcium Level 8.1 mg/dL (8.5-10.1) Total Bilirubin 0.3 mg/dL (0.2-1.0) Aspartate Amino Transf (AST/SGOT) 38 U/L (15-37) Alanine Aminotransferase (ALT/SGPT) 38 U/L (16-63) Alkaline Phosphatase 111 U/L (46-116) Troponin I Quantitative 1.288 ng/mL (0.000-0.055) JY-Igg-Y-Type Natriuretic Peptide 167 pg/mL (0-124) Total Protein 6.5 g/dL (6.4-8.2) Albumin 2.8 g/dL (3.4-5.0) Albumin/Globulin Ratio 0.8 (1.0-1.7) Images Images 04/23/2020 Lexiscan: 1. Chest pain with infusion. 2. EKG changes with stress that are suggestive of reversible ischemia. 3. Nuclear imaging shows an area of at least partially reversible ischemia in the inferior wall. 4. Normal left ventricular systolic function with an ejection fraction of greater than 70%. 5. Moderately high risk scan suggestive of inferior wall reversible ischemia. VTE Prophylaxis Ordered VTE Prophylaxis Devices: No VTE Pharmacological Prophylaxi: Yes Assessment/Plan Assessment/Plan A/P NSTEMI - with chest pain, EKG changes, trop 1.2. Heparin GTT. cardiology consulted. Stop methamphetamines CAD s/p previous PCI/stents in 2012 Hypertension - controlled Hyperlipidemia - cont statin Substance use disorder - previously on opioids, now on Methamphetamines. Used as recently as last night, uses every other day Tobacco abuse - counseled on cessation Alcohol use disorder - counseled on cutting back Hypokalemia - will check mag. Replace H/o Hep C - in remission Severe protein calorie malnutrition - will have tuck pointer to see FEN - NPO after midnight PPX - heparin gtt FULL CODE Dispo - inpatient Justicifation of Admission Dx: Justifications for Admission: Justification of Admission Dx: Yes AR: Acute NSTEMI CIELO URBAN MD Apr 24, 2020 11:58
[2020-04-24 12:00] LABS: CHOLESTEROL/HDL RATIO 6.4
[2020-04-24] MEDS: IV NORMAL SALINE 1000ML BAG 1,000 ML IV SCH ×3 (12:35→23:46)
[2020-04-24] MEDS: fentaNYL PF VIAL 100 MCG/2 ML VIAL IV PRN ×3 (13:01→20:06)
[2020-04-24] MEDS ORDERED: POTASSIUM CHLORIDE 20 MEQ TABLET.ER. PO ONE (14:15)
[2020-04-24] MEDS ORDERED: ANTI-COAG MONITOR BY PHARMACY. MC PRN (15:00)
[2020-04-24] MEDS ORDERED: NABU500T PO (15:01)
[2020-04-24] MEDS ORDERED: PREG150C PO (15:01)
--- NOTE | 2020-04-24 19:05 | EKG ---
[facility] [address] [place] [address] Test Date: 2020-04-24 Test Time: 09:29:22 Pat Name: SAVANNAH MOHAN Department: Room: Gender: M [employer]: SUSY : 1960 Requested By: FABIÁN HARRIS Order Number: [id number] Reading MD: Measurements Intervals [place] Rate: 52 P: 44 FL: 162 QRS: -2 QRSD: 100 T: 0 QT: 452 QTc: 422 Interpretive Statements SINUS RHYTHM LEFTWARD AXIS QRS(T) CONTOUR ABNORMALITY CONSISTENT WITH INFERIOR INFARCT AGE UNDETERMINED ABNORMAL ECG RI6.02 Compared to ECG 04/24/2020 09:27:11 No significant changes
[2020-04-24] MEDS: ATORVASTATIN CALCIUM 40 MG TABLET. PO SCH (20:06)
[2020-04-24] MEDS: TAMSULOSIN 0.4 MG CAP.ER.24H. PO SCH (20:07)
[2020-04-24] MEDS ORDERED: ATORVASTATIN CALCIUM 40 MG TABLET. PO SCH (21:00)
[2020-04-24] MEDS ORDERED: HEPARIN for IV BOLUS 10,000 UNIT/10 ML VIAL. IV PRN (23:30)
[2020-04-25] VITALS (28 sets, daily range): BP systolic 91–155; BP diastolic 53–88
[2020-04-25] MEDS: HEPARIN 25,000UTS/250ML PREMIX 250 ML IV PRN ×2 (05:46→23:48)
[2020-04-25 07:20] LABS: BASO % 1 % (0-3); EOS # 0.2 x10^3/uL (0.0-0.7); EOS % 3 % (0-3); HEMATOCRIT 41.1 % (39.0-53.0); HEMOGLOBIN 13.7 g/dL (13.0-17.5); LYMPH # 1.8 x10^3/uL (1.0-4.8); LYMPH % 24 % (24-48); MEAN CORPUSCULAR HEMOGLOBIN 33 pg (25-35); MEAN CORPUSCULAR HGB CONC 33 g/dL (31-37); MEAN CORPUSCULAR VOLUME 101 fL (79-100); MONO # 0.7 x10^3/uL (0.0-1.1); MONO % 9 % (0-9); NEUT # 4.8 x10^3/uL (1.8-7.7); NEUT % 63 % (31-73); PLATELET COUNT 146 x10^3/uL (140-400); RED BLOOD COUNT 4.09 x10^6/uL (4.30-5.70); RED CELL DISTRIBUTION WIDTH 14.8 % (11.5-14.5); WHITE BLOOD COUNT 7.5 x10^3/uL (4.0-11.0)
[2020-04-25 08:25] LABS: CALCIUM 8.4 mg/dL (8.5-10.1); CREATININE 0.6 mg/dL (0.7-1.3); GFR 138.9; POTASSIUM 3.5 mmol/L (3.5-5.1)
[2020-04-25] MEDS ORDERED: LIDOCAINE 1% PF 2 ML VIAL. ONE (08:25)
[2020-04-25] MEDS ORDERED: IOHEXOL 300 MG/ML 100ML VIAL. ONE (08:25)
--- NOTE | 2020-04-25 08:42 | PDOC ---
PROGRESS NOTES Date of Service: DATE: 04/25/20 TIME: 08:39 Chief Complaint Chief Complaint NSTEMI - with chest pain, EKG changes, trop 1.2. Heparin GTT. cardiology consulted. Stop methamphetamines CAD s/p previous PCI/stents in 2012 Hypertension - controlled Hyperlipidemia - cont statin Substance use disorder - previously on opioids, now on Methamphetamines. Used as recently as last night, uses every other day Tobacco abuse - counseled on cessation Alcohol use disorder - counseled on cutting back Hypokalemia - will check mag. Replace H/o Hep C - in remission Severe protein calorie malnutrition - will have director of parks and recreation to see Plan folllow recommendations as per [employer] consultant Recommendations Continue heparin gtt Resume ASA/plavix, statin No BB with bradycardia Echo to assess LV systolic function Discussed/encouraged cessation from meth and tobaccos use Monitor for withdrawal Plan for left heart catheterization today as patient used methamphetamines day prior to admission NPO p MN will give counseling before discharge regarding the noxious effects of drugs on his health PPX - heparin gtt FULL CODE Dispo - inpatient History of Present Illness History of Present Illness Mr Almonte is a a 59 yo male w/ PMHx BPH, HTN, HLD, Hep C in remission, substance use disorder (opioid, meth, ETOH), CAD s/p stent x2 who presented with central and right sided chest pain. Pain is sharp and tight, radiates to his right shoulder and into his back. Worse with exertion initially resolved with rest. Has associated shortness of breath and diaphoresis. He actually had intermittent chest pain for the last couple of weeks. Underwent outpatient stress test yesterday that was abnormal and was getting scheduled for outpatient heart catheterization. However, he was anxious after his stress test yesterday and smoked metha mphetamines overnight and then woke up feeling better. Later in the morning, chest tightness returned with above symptoms and came to ED for further evaluation and treatment. Trop 1.2. EKG with ST depression anterior septal with sinus bradycardia Heparin gtt was initiated and nitro paste applied to chest wall. Admitted for further treatment 04/25/2020 Vitals Vitals Vital Signs Date Time Temp Pulse Resp B/P (MAP) Pulse Ox O2 Delivery O2 Flow Rate FiO2 04/25/20 06:00 69 13 102/66 (78) 94 Room Air 04/25/20 05:00 2.0 04/25/20 04:00 98.1 98.1 Physical Exam Physical Exam General: Alert, Oriented X3, Cooperative, moderate distress HEENT: Atraumatic, PERRLA, EOMI, Mucous membr. moist/pink Lungs: Clear to auscultation, Normal air movement Heart: S1S2, RRR, no thrills, no rubs, no gallops, no murmurs Abdomen: Normal bowel sounds, Soft, No tenderness, No hepatosplenomegaly, No masses Rectal Exam: not examined Skin: No rashes, No breakdown, No significant lesion Neuro: Normal gait, Normal speech, Strength at 5/5 X4 ext, Normal tone, Sensation intact, Cranial nerves 3-12 NL, Reflexes 2+ Psych/Mental Status: Mental status NL, Mood NL General: Alert, Oriented X3, Cooperative, moderate distress Heart: Regular rate, Normal S1, Normal S2 Abdomen: Normal bowel sounds, Soft, No tenderness, No hepatosplenomegaly, No masses Extremities: Other (1+ bilateral LE edema ) Skin: No rashes, No breakdown, No significant lesion Labs LABS Laboratory Tests Test 04/24/20 09:36 04/24/20 11:55 04/24/20 14:50 04/24/20 17:41 White Blood Count 6.8 x10^3/uL (4.0-11.0) Red Blood Count 4.26 x10^6/uL (4.30-5.70) Hemoglobin 14.2 g/dL (13.0-17.5) Hematocrit 41.7 % (39.0-53.0) Mean Corpuscular Volume 98 fL (79-100) Mean Corpuscular Hemoglobin 33 pg (25-35) Mean Corpuscular Hemoglobin Concent 34 g/dL (31-37) Red Cell Distribution Width 14.8 % (11.5-14.5) Platelet Count 205 x10^3/uL (140-400) Neutrophils (%) (Auto) 52 % (31-73) Lymphocytes (%) (Auto) 33 % (24-48) Monocytes (%) (Auto) 10 % (0-9) Eosinophils (%) (Auto) 4 % (0-3) Basophils (%) (Auto) 1 % (0-3) Neutrophils # (Auto) 3.5 x10^3/uL (1.8-7.7) Lymphocytes # (Auto) 2.3 x10^3/uL (1.0-4.8) Monocytes # (Auto) 0.7 x10^3/uL (0.0-1.1) Eosinophils # (Auto) 0.3 x10^3/uL (0.0-0.7) Basophils # (Auto) 0.1 x10^3/uL (0.0-0.2) Sodium Level 141 mmol/L (136-145) Potassium Level 3.2 mmol/L (3.5-5.1) Chloride Level 103 mmol/L (98-107) Carbon Dioxide Level 31 mmol/L (21-32) Anion Gap 7 (6-14) Blood Urea Nitrogen 16 mg/dL (8-26) Creatinine 1.0 mg/dL (0.7-1.3) Estimated GFR (Cockcroft-Gault) 77.0 BUN/Creatinine Ratio 16 (6-20) Glucose Level 118 mg/dL (70-99) Calcium Level 8.1 mg/dL (8.5-10.1) Magnesium Level 2.0 mg/dL (1.8-2.4) Total Bilirubin 0.3 mg/dL (0.2-1.0) Aspartate Amino Transf (AST/SGOT) 38 U/L (15-37) Alanine Aminotransferase (ALT/SGPT) 38 U/L (16-63) Alkaline Phosphatase 111 U/L (46-116) Troponin I Quantitative 1.288 ng/mL (0.000-0.055) 5.224 ng/mL (0.000-0.055) 8.546 ng/mL (0.000-0.055) XS-Wvm-J-Type Natriuretic Peptide 167 pg/mL (0-124) Total Protein 6.5 g/dL (6.4-8.2) Albumin 2.8 g/dL (3.4-5.0) Albumin/Globulin Ratio 0.8 (1.0-1.7) Triglycerides Level 375 mg/dL (0-150) Cholesterol Level 218 mg/dL (0-200) LDL Cholesterol, Calculated 109 mg/dL (0-100) VLDL Cholesterol, Calculated 75 mg/dL (0-40) Non-HDL Cholesterol Calculated 184 mg/dL (0-129) HDL Cholesterol 34 mg/dL (40-60) Cholesterol/HDL Ratio 6.4 Thyroid Stimulating Hormone (TSH) 1.696 uIU/mL (0.358-3.74) SARS-CoV-2 Antigen (Rapid) Negative (NEGATIVE) Heparin Anti-Xa Act, Unfractionated 0.21 IU/mL (0.30-0.70) Test 04/24/20 22:31 04/25/20 06:00 Heparin Anti-Xa Act, Unfractionated 0.17 IU/mL (0.30-0.70) White Blood Count 7.5 x10^3/uL (4.0-11.0) Red Blood Count 4.09 x10^6/uL (4.30-5.70) Hemoglobin 13.7 g/dL (13.0-17.5) Hematocrit 41.1 % (39.0-53.0) Mean Corpuscular Volume 101 fL (79-100) Mean Corpuscular Hemoglobin 33 pg (25-35) Mean Corpuscular Hemoglobin Concent 33 g/dL (31-37) Red Cell Distribution Width 14.8 % (11.5-14.5) Platelet Count 146 x10^3/uL (140-400) Neutrophils (%) (Auto) 63 % (31-73) Lymphocytes (%) (Auto) 24 % (24-48) Monocytes (%) (Auto) 9 % (0-9) Eosinophils (%) (Auto) 3 % (0-3) Basophils (%) (Auto) 1 % (0-3) Neutrophils # (Auto) 4.8 x10^3/uL (1.8-7.7) Lymphocytes # (Auto) 1.8 x10^3/uL (1.0-4.8) Monocytes # (Auto) 0.7 x10^3/uL (0.0-1.1) Eosinophils # (Auto) 0.2 x10^3/uL (0.0-0.7) Basophils # (Auto) 0.0 x10^3/uL (0.0-0.2) Sodium Level 140 mmol/L (136-145) Potassium Level 3.5 mmol/L (3.5-5.1) Chloride Level 105 mmol/L (98-107) Carbon Dioxide Level 25 mmol/L (21-32) Anion Gap 10 (6-14) Blood Urea Nitrogen 12 mg/dL (8-26) Creatinine 0.6 mg/dL (0.7-1.3) Estimated GFR (Cockcroft-Gault) 138.9 Glucose Level 91 mg/dL (70-99) Calcium Level 8.4 mg/dL (8.5-10.1) Assessment and Plan Assessmemt and Plan Problems Medical Problems: (1) NSTEMI (non-ST elevated myocardial infarction) Status: Acute Comment Review of Relevant I have reviewed the following items elizabeth (where applicable) has been applied. Labs Laboratory Tests Test 04/24/20 09:36 04/24/20 11:55 04/24/20 14:50 04/24/20 17:41 White Blood Count 6.8 x10^3/uL (4.0-11.0) Red Blood Count 4.26 x10^6/uL (4.30-5.70) Hemoglobin 14.2 g/dL (13.0-17.5) Hematocrit 41.7 % (39.0-53.0) Mean Corpuscular Volume 98 fL (79-100) Mean Corpuscular Hemoglobin 33 pg (25-35) Mean Corpuscular Hemoglobin Concent 34 g/dL (31-37) Red Cell Distribution Width 14.8 % (11.5-14.5) Platelet Count 205 x10^3/uL (140-400) Neutrophils (%) (Auto) 52 % (31-73) Lymphocytes (%) (Auto) 33 % (24-48) Monocytes (%) (Auto) 10 % (0-9) Eosinophils (%) (Auto) 4 % (0-3) Basophils (%) (Auto) 1 % (0-3) Neutrophils # (Auto) 3.5 x10^3/uL (1.8-7.7) Lymphocytes # (Auto) 2.3 x10^3/uL (1.0-4.8) Monocytes # (Auto) 0.7 x10^3/uL (0.0-1.1) Eosinophils # (Auto) 0.3 x10^3/uL (0.0-0.7) Basophils # (Auto) 0.1 x10^3/uL (0.0-0.2) Sodium Level 141 mmol/L (136-145) Potassium Level 3.2 mmol/L (3.5-5.1) Chloride Level 103 mmol/L (98-107) Carbon Dioxide Level 31 mmol/L (21-32) Anion Gap 7 (6-14) Blood Urea Nitrogen 16 mg/dL (8-26) Creatinine 1.0 mg/dL (0.7-1.3) Estimated GFR (Cockcroft-Gault) 77.0 BUN/Creatinine Ratio 16 (6-20) Glucose Level 118 mg/dL (70-99) Calcium Level 8.1 mg/dL (8.5-10.1) Magnesium Level 2.0 mg/dL (1.8-2.4) Total Bilirubin 0.3 mg/dL (0.2-1.0) Aspartate Amino Transf (AST/SGOT) 38 U/L (15-37) Alanine Aminotransferase (ALT/SGPT) 38 U/L (16-63) Alkaline Phosphatase 111 U/L (46-116) Troponin I Quantitative 1.288 ng/mL (0.000-0.055) 5.224 ng/mL (0.000-0.055) 8.546 ng/mL (0.000-0.055) WD-Rqg-G-Type Natriuretic Peptide 167 pg/mL (0-124) Total Protein 6.5 g/dL (6.4-8.2) Albumin 2.8 g/dL (3.4-5.0) Albumin/Globulin Ratio 0.8 (1.0-1.7) Triglycerides Level 375 mg/dL (0-150) Cholesterol Level 218 mg/dL (0-200) LDL Cholesterol, Calculated 109 mg/dL (0-100) VLDL Cholesterol, Calculated 75 mg/dL (0-40) Non-HDL Cholesterol Calculated 184 mg/dL (0-129) HDL Cholesterol 34 mg/dL (40-60) Cholesterol/HDL Ratio 6.4 Thyroid Stimulating Hormone (TSH) 1.696 uIU/mL (0.358-3.74) SARS-CoV-2 Antigen (Rapid) Negative (NEGATIVE) Heparin Anti-Xa Act, Unfractionated 0.21 IU/mL (0.30-0.70) Test 04/24/20 22:31 04/25/20 06:00 Heparin Anti-Xa Act, Unfractionated 0.17 IU/mL (0.30-0.70) White Blood Count 7.5 x10^3/uL (4.0-11.0) Red Blood Count 4.09 x10^6/uL (4.30-5.70) Hemoglobin 13.7 g/dL (13.0-17.5) Hematocrit 41.1 % (39.0-53.0) Mean Corpuscular Volume 101 fL (79-100) Mean Corpuscular Hemoglobin 33 pg (25-35) Mean Corpuscular Hemoglobin Concent 33 g/dL (31-37) Red Cell Distribution Width 14.8 % (11.5-14.5) Platelet Count 146 x10^3/uL (140-400) Neutrophils (%) (Auto) 63 % (31-73) Lymphocytes (%) (Auto) 24 % (24-48) Monocytes (%) (Auto) 9 % (0-9) Eosinophils (%) (Auto) 3 % (0-3) Basophils (%) (Auto) 1 % (0-3) Neutrophils # (Auto) 4.8 x10^3/uL (1.8-7.7) Lymphocytes # (Auto) 1.8 x10^3/uL (1.0-4.8) Monocytes # (Auto) 0.7 x10^3/uL (0.0-1.1) Eosinophils # (Auto) 0.2 x10^3/uL (0.0-0.7) Basophils # (Auto) 0.0 x10^3/uL (0.0-0.2) Sodium Level 140 mmol/L (136-145) Potassium Level 3.5 mmol/L (3.5-5.1) Chloride Level 105 mmol/L (98-107) Carbon Dioxide Level 25 mmol/L (21-32) Anion Gap 10 (6-14) Blood Urea Nitrogen 12 mg/dL (8-26) Creatinine 0.6 mg/dL (0.7-1.3) Estimated GFR (Cockcroft-Gault) 138.9 Glucose Level 91 mg/dL (70-99) Calcium Level 8.4 mg/dL (8.5-10.1) Laboratory Tests Test 04/24/20 09:36 04/24/20 11:55 04/24/20 14:50 04/24/20 17:41 White Blood Count 6.8 x10^3/uL (4.0-11.0) Red Blood Count 4.26 x10^6/uL (4.30-5.70) Hemoglobin 14.2 g/dL (13.0-17.5) Hematocrit 41.7 % (39.0-53.0) Mean Corpuscular Volume 98 fL (79-100) Mean Corpuscular Hemoglobin 33 pg (25-35) Mean Corpuscular Hemoglobin Concent 34 g/dL (31-37) Red Cell Distribution Width 14.8 % (11.5-14.5) Platelet Count 205 x10^3/uL (140-400) Neutrophils (%) (Auto) 52 % (31-73) Lymphocytes (%) (Auto) 33 % (24-48) Monocytes (%) (Auto) 10 % (0-9) Eosinophils (%) (Auto) 4 % (0-3) Basophils (%) (Auto) 1 % (0-3) Neutrophils # (Auto) 3.5 x10^3/uL (1.8-7.7) Lymphocytes # (Auto) 2.3 x10^3/uL (1.0-4.8) Monocytes # (Auto) 0.7 x10^3/uL (0.0-1.1) Eosinophils # (Auto) 0.3 x10^3/uL (0.0-0.7) Basophils # (Auto) 0.1 x10^3/uL (0.0-0.2) Sodium Level 141 mmol/L (136-145) Potassium Level 3.2 mmol/L (3.5-5.1) Chloride Level 103 mmol/L (98-107) Carbon Dioxide Level 31 mmol/L (21-32) Anion Gap 7 (6-14) Blood Urea Nitrogen 16 mg/dL (8-26) Creatinine 1.0 mg/dL (0.7-1.3) Estimated GFR (Cockcroft-Gault) 77.0 BUN/Creatinine Ratio 16 (6-20) Glucose Level 118 mg/dL (70-99) Calcium Level 8.1 mg/dL (8.5-10.1) Magnesium Level 2.0 mg/dL (1.8-2.4) Total Bilirubin 0.3 mg/dL (0.2-1.0) Aspartate Amino Transf (AST/SGOT) 38 U/L (15-37) Alanine Aminotransferase (ALT/SGPT) 38 U/L (16-63) Alkaline Phosphatase 111 U/L (46-116) Troponin I Quantitative 1.288 ng/mL (0.000-0.055) 5.224 ng/mL (0.000-0.055) 8.546 ng/mL (0.000-0.055) AE-Vns-Q-Type Natriuretic Peptide 167 pg/mL (0-124) Total Protein 6.5 g/dL (6.4-8.2) Albumin 2.8 g/dL (3.4-5.0) Albumin/Globulin Ratio 0.8 (1.0-1.7) Triglycerides Level 375 mg/dL (0-150) Cholesterol Level 218 mg/dL (0-200) LDL Cholesterol, Calculated 109 mg/dL (0-100) VLDL Cholesterol, Calculated 75 mg/dL (0-40) Non-HDL Cholesterol Calculated 184 mg/dL (0-129) HDL Cholesterol 34 mg/dL (40-60) Cholesterol/HDL Ratio 6.4 Thyroid Stimulating Hormone (TSH) 1.696 uIU/mL (0.358-3.74) SARS-CoV-2 Antigen (Rapid) Negative (NEGATIVE) Heparin Anti-Xa Act, Unfractionated 0.21 IU/mL (0.30-0.70) Test 04/24/20 22:31 04/25/20 06:00 Heparin Anti-Xa Act, Unfractionated 0.17 IU/mL (0.30-0.70) White Blood Count 7.5 x10^3/uL (4.0-11.0) Red Blood Count 4.09 x10^6/uL (4.30-5.70) Hemoglobin 13.7 g/dL (13.0-17.5) Hematocrit 41.1 % (39.0-53.0) Mean Corpuscular Volume 101 fL (79-100) Mean Corpuscular Hemoglobin 33 pg (25-35) Mean Corpuscular Hemoglobin Concent 33 g/dL (31-37) Red Cell Distribution Width 14.8 % (11.5-14.5) Platelet Count 146 x10^3/uL (140-400) Neutrophils (%) (Auto) 63 % (31-73) Lymphocytes (%) (Auto) 24 % (24-48) Monocytes (%) (Auto) 9 % (0-9) Eosinophils (%) (Auto) 3 % (0-3) Basophils (%) (Auto) 1 % (0-3) Neutrophils # (Auto) 4.8 x10^3/uL (1.8-7.7) Lymphocytes # (Auto) 1.8 x10^3/uL (1.0-4.8) Monocytes # (Auto) 0.7 x10^3/uL (0.0-1.1) Eosinophils # (Auto) 0.2 x10^3/uL (0.0-0.7) Basophils # (Auto) 0.0 x10^3/uL (0.0-0.2) Sodium Level 140 mmol/L (136-145) Potassium Level 3.5 mmol/L (3.5-5.1) Chloride Level 105 mmol/L (98-107) Carbon Dioxide Level 25 mmol/L (21-32) Anion Gap 10 (6-14) Blood Urea Nitrogen 12 mg/dL (8-26) Creatinine 0.6 mg/dL (0.7-1.3) Estimated GFR (Cockcroft-Gault) 138.9 Glucose Level 91 mg/dL (70-99) Calcium Level 8.4 mg/dL (8.5-10.1) Medications Current Medications Aspirin (Aspirin Chewable) 324 mg 1X ONCE PO ; Start 04/24/20 at 10:00; Stop 04/24/20 at 10:01; Status DC Fentanyl Citrate (Fentanyl 2ml Vial) 50 mcg 1X ONCE IV Last administered on 04/24/20at 10:19; Start 04/24/20 at 10:00; Stop 04/24/20 at 10:01; Status DC Ondansetron HCl (Zofran) 4 mg 1X ONCE IV Last administered on 04/24/20at 10:08; Start 04/24/20 at 10:00; Stop 04/24/20 at 10:01; Status DC Sodium Chloride 1,000 ml @ 1,000 mls/hr 1X ONCE IV Last administered on 04/24/20at 10:22; Start 04/24/20 at 10:30; Stop 04/24/20 at 11:29; Status DC Heparin Sodium (Porcine) (Heparin Sodium) 4,000 unit 1X ONCE IV Last administered on 04/24/20 11:10; Start 04/24/20 at 11:00; Stop 04/24/20 at 11:01; Status DC Heparin Sodium/ Dextrose 250 ml @ 10 mls/hr CONT PRN IV PER PROTOCOL Last admi nistered on 04/25/20 05:46; Start 04/24/20 at 11:00 Nitroglycerin (Nitro-Bid Oint) 1 inch 1X ONCE TP Last administered on 04/06 11:16; Start 04/24/20 at 11:00; Stop 04/24/20 at 11:01; Status DC Ondansetron HCl (Zofran) 4 mg PRN Q8HRS PRN IV NAUSEA/VOMITING Last administered on 04/24/20 13:01; Start 04/24/20 at 11:45; Stop 04/24/20 at 16:52; Status DC Fentanyl Citrate (Fentanyl 2ml Vial) 50 mcg PRN Q1HR PRN IV PAIN Last administered on 04/24/20 20:06; Start 04/24/20 at 11:45 Sodium Chloride 1,000 ml @ 150 mls/hr Q6H40M IV Last administered on 04/24/20 23:46; Start 04/24/20 at 11:45; Stop 04/25/20 at 11:44 Potassium Chloride (Klor-Con) 20 meq 1X ONCE PO Last administered on 04/24/20at 14:15; Start 04/24/20 at 14:15; Stop 04/24/20 at 14:16; Status DC Atorvastatin Calcium (Lipitor) 40 mg QHS PO Last administered on 04/24/20at 20:06; Start 04/24/20 at 21:00 Info (Anti-Coagulation Monitoring By Pharmacy) 1 each PRN DAILY PRN MC SEE COMMENTS; Start 04/24/20 at 15:00 Amlodipine Besylate (Norvasc) 5 mg DAILY PO ; Start 04/25/20 at 09:00 Aspirin (Aspirin Chewable) 81 mg DAILY PO Last administered on 04/25/20at 08:24; Start 04/25/20 at 09:00 Ondansetron HCl (Zofran) 4 mg PRN Q4HRS PRN IV NAUSEA/VOMITING; Start 04/24/20 at 17:00 Atorvastatin Calcium (Lipitor) 40 mg QHS PO Last administered on 04/24/20at 20:06; Start 04/24/20 at 21:00 Tamsulosin HCl (Flomax) 0.4 mg QHS PO Last administered on 04/24/20at 20:07; Start 04/24/20 at 21:00 Heparin Sodium (Porcine) (Heparin Sodium) 2,600 unit PRN Q6HRS PRN IV FOR UFH LEVEL LESS THAN 0.2 Last administered on 04/24/20at 23:39; Start 04/24/20 at 23:30 Lidocaine HCl (Xylocaine-Mpf 1% 2ml Vial) 2 ml STK-MED ONCE .ROUTE ; Start 04/25/20 at 08:25; Stop 04/25/20 at 08:26; Status DC Iohexol (Omnipaque 300 Mg/ml) 100 ml STK-MED ONCE .ROUTE ; Start 04/25/20 at 08:25; Stop 04/25/20 at 08:26; Status DC Heparin Sodium/ Sodium Chloride 1,000 ml @ As Directed STK-MED ONCE .ROUTE ; Start 04/25/20 at 08:25; Stop 04/25/20 at 08:26; Status DC Active Scripts Active Norvasc (Amlodipine Besylate) 5 Mg Tablet 5 Mg PO DAILY Reported Lyrica (Pregabalin) 150 Mg Capsule 1 Cap PO BID Nabumetone 500 Mg Tablet 1 Tab PO BID Aspirin 81 Mg Tab.chew Unknown Dose PO DAILY Atorvastatin Calcium 40 Mg Tablet 1 Tab PO DAILY Tamsulosin Hcl 0.4 Mg Cap.er.24h 1 Cap PO DAILY Vitals/I & O Vital Sign - Last 24 Hours 04/24/20 04/24/20 04/24/20 04/24/20 09:28 09:29 09:48 10:13 Temp 97.6 97.6 Pulse 50 78 48 50 Resp 22 B/P (MAP) 100/64 (76) 100/64 (76) 88/52 (64) 72/51 (58) Pulse Ox 96 99 99 98 O2 Delivery Room Air Room Air Room Air Room Air 04/24/20 04/24/20 04/24/20 04/24/20 10:15 10:19 10:22 10:28 Pulse 52 48 74 Resp 20 22 20 20 B/P (MAP) 78/52 (61) 76/59 (65) 96/65 (75) Pulse Ox 96 97 98 87 O2 Delivery Room Air Room Air Room Air Room Air 04/24/20 04/24/20 04/24/20 04/24/20 10:35 10:48 11:07 11:08 Pulse 56 64 90 62 Resp 18 16 18 15 B/P (MAP) 105/77 (86) 114/76 (89) 106/74 (85) 102/71 (81) Pulse Ox 95 91 94 95 O2 Delivery Room Air Room Air Room Air Room Air 04/24/20 04/24/20 04/24/20 04/24/20 11:16 11:28 11:30 11:48 Pulse 86 100 100 66 Resp 12 14 12 B/P (MAP) 102/71 112/74 (87) 110/77 (88) 112/80 (91) Pulse Ox 94 93 92 O2 Delivery Room Air Room Air Room Air 04/24/20 04/24/20 04/24/20 04/24/20 12:07 12:28 13:00 13:00 Temp 97.6 97.6 Pulse 60 74 64 Resp 16 16 20 B/P (MAP) 103/67 (79) 89/63 (72) 82/65 (71) Pulse Ox 96 97 98 O2 Delivery Room Air Room Air Room Air Room Air 04/24/20 04/24/20 04/24/20 04/24/20 13:01 13:15 13:30 13:40 Pulse 90 68 Resp 22 16 B/P (MAP) 112/82 (92) 94/71 (79) Pulse Ox 98 98 O2 Delivery Room Air Room Air 04/24/20 04/24/20 04/24/20 04/24/20 13:44 13:45 14:00 15:00 Pulse 56 56 58 Resp 16 20 22 B/P (MAP) 95/77 (83) 90/71 (77) 89/54 (66) Pulse Ox 98 96 92 O2 Delivery Room Air Room Air Room Air 04/24/20 04/24/20 04/24/20 04/24/20 15:10 15:40 16:00 16:00 Temp 97.8 97.8 Pulse 56 Resp 16 18 18 B/P (MAP) 102/76 (85) Pulse Ox 98 94 93 O2 Delivery Room Air Room Air Room Air Room Air 04/24/20 04/24/20 04/24/20 04/24/20 17:00 18:00 19:00 20:00 Temp 97.9 97.9 Pulse 84 63 59 69 Resp 16 18 16 B/P (MAP) 102/73 (83) 115/75 (88) 117/77 (90) 115/75 (88) Pulse Ox 98 96 96 96 O2 Delivery Nasal Cannula Nasal Cannula Room Air Nasal Cannula O2 Flow Rate 2.0 2.0 2.0 04/24/20 04/24/20 04/24/20 04/24/20 20:05 20:06 20:37 21:00 Pulse 83 Resp 18 17 B/P (MAP) 110/74 (86) Pulse Ox 96 96 98 O2 Delivery Nasal Cannula Nasal Cannula Room Air Nasal Cannula O2 Flow Rate 2.0 2.0 2.0 2.0 04/24/20 04/24/20 04/25/20 04/25/20 22:00 23:06 00:01 00:05 Temp 97.9 97.9 Pulse 60 69 67 Resp 16 21 16 B/P (MAP) 92/66 (75) 113/76 (88) 119/73 (88) Pulse Ox 97 100 99 O2 Delivery Nasal Cannula Nasal Cannula Nasal Cannula Nasal Cannula O2 Flow Rate 2.0 2.0 2.0 2.0 04/25/20 04/25/20 04/25/20 04/25/20 01:00 02:02 03:00 04:00 Temp 98.1 98.1 Pulse 53 67 62 58 Resp 12 13 12 15 B/P (MAP) 110/69 (83) 116/80 (92) 116/81 (93) 96/64 (75) Pulse Ox 100 99 99 98 O2 Delivery Nasal Cannula Nasal Cannula Nasal Cannula Nasal Cannula O2 Flow Rate 2.0 2.0 2.0 2.0 04/25/20 04/25/20 04/25/20 04:10 05:00 06:00 Pulse 62 69 Resp 15 13 B/P (MAP) 97/60 (72) 102/66 (78) Pulse Ox 95 94 O2 Delivery Nasal Cannula Nasal Cannula Room Air O2 Flow Rate 2.0 2.0 Intake and Output 04/24/20 04/24/20 04/25/20 15:00 23:00 07:00 Intake Total 720 ml 1376 ml 480 ml Output Total 0 ml 500 ml 450 ml Balance 720 ml 876 ml 30 ml Justicifation of Admission Dx: Justifications for Admission: Justification of Admission Dx: Yes MN: Acute NSTEMI ANTWON TIDWELL MD Apr 25, 2020 08:42
[2020-04-25] MEDS ORDERED: ASPIRIN CHEWABLE 81 MG TABLET. PO SCH (09:00)
[2020-04-25] MEDS ORDERED: amLODIPine BESYLATE 5 MG TABLET PO SCH (09:00)
[2020-04-25] MEDS ORDERED: fentaNYL PF VIAL 100 MCG/2 ML VIAL ONE (09:04)
[2020-04-25] MEDS ORDERED: VERAPAMIL 5 MG/2 ML VIAL. ONE (09:05)
[2020-04-25] MEDS ORDERED: HEPARIN for IV BOLUS 10,000 UNIT/10 ML VIAL. ONE (09:05)
[2020-04-25] MEDS ORDERED: NITROGLYCERIN 200 MCG/2 ML SYRINGE FOR CATH/VASC LAB. ONE (09:05)
[2020-04-25] MEDS ORDERED: MIDAZOLAM HCL/PF 2 MG/2 ML VIAL. ONE (09:05)
[2020-04-25] MEDS ORDERED: VERAPAMIL 5 MG/2 ML VIAL. IART ONE (09:30)
[2020-04-25] MEDS ORDERED: IOHEXOL 300 MG/ML 100ML VIAL. IART ONE (09:30)
[2020-04-25] MEDS ORDERED: MIDAZOLAM HCL/PF 2 MG/2 ML VIAL. IV ONE (09:30)
[2020-04-25] MEDS ORDERED: NITROGLYCERIN 200 MCG/2 ML SYRINGE FOR CATH/VASC LAB. IART ONE (09:30)
[2020-04-25] MEDS ORDERED: HEPARIN for IV BOLUS 10,000 UNIT/10 ML VIAL. IART ONE (09:30)
[2020-04-25] MEDS ORDERED: LIDOCAINE 1% PF 2 ML VIAL. INJ ONE (09:30)
[2020-04-25] MEDS ORDERED: fentaNYL PF VIAL 100 MCG/2 ML VIAL IV ONE (09:30)
[2020-04-25] MEDS: IV NORMAL SALINE 1000ML BAG 1,000 ML IV SCH (09:42)
--- NOTE | 2020-04-25 10:20 | CARD ---
MR#: [id number] Date of Study: 04/25/2020 Ordering Physician: CECILIO CARO, Referring Physician: CECILIO CARO, Tech: RT [place] (R) JASON APPROVED REPORT Technologist: Julissa Hartmann RT (R) JASON Nurse: Funmi Fulton R.N. Procedure(s) performed: FL TIME: 4.6 MIN DOSE: 81 GYCM2 CONTRAST: 66 ML MODERATE SEDATION: 39 MINS Coronary angiography HISTORY The patient is a 59 year-old male with a history of : coronary artery disease, tobacco history() , hy pertension, dyslipidemia. INDICATION The indication(s) include : non-STEMI . CS Clinical Frailty Scale CS Clinical Frailty Scale: Mildly Frail Heart Failure Heart Failure: Yes If Yes, Newly Diagnosed: No If Yes, HF Type: Diastolic If Yes, NYHA Class: Class III PROCEDURE NARRATIVE Clinical information: 59-year-old man who presents to the hospital in the setting of NSTEMI Informed consent: Written informed consent was obtained from the patient after adequate discussion of the risks and ebony efits of the procedure. Procedure details: ACCESS: The right wrist was prepped and draped in usual sterile fashion. Under 1% lidocaine local anesthesia a 6 [place] Terumo sheath was placed in the right radial artery via the Seldinger technique. DIAGNOSTIC ANGIOGRAPHY: Right and left coronary arteries were engaged with a 6 [place] TIG catheter. Diagnostic angiography i n multiple views were obtained. All catheters were exchanged over J-tip guidewire. FINDINGS: ======= Aorta: 110/80 Left ventriculogram: Deferred due to known EF by echo of 50%. Coronary angiography: LM: Large caliber vessel with normal angiographic appearance LAD: Large caliber vessel with a a proximal to mid diffuse 70% stenosis. D1: Small caliber vessel with a proximal 50% stenosis. LCX: Moderate caliber vessel with a proximal 50% stenosis. OM1: Moderate caliber proximally bifurcating vessel with an ostial 70% stenosis of the superior branc h and a patent stent in the inferior branch. RCA: Large caliber dominant vessel with a proximal 100% occlusion. The distal vessel is seen to fill via robust left to right collaterals. CLOSURE: At case completion the right radial sheath was removed and a Terumo radial band was applied with 11 m L of air. Hemostasis was achieved. COMPLICATIONS: No acute complications noted Conclusion 1. 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 Recommendations Referral to Dr. Mercado for CT surgery evaluation. Signed by : Fan Luna, Electronically Approved : 04/25/2020 10:19:33
[2020-04-25] MEDS: fentaNYL PF VIAL 100 MCG/2 ML VIAL IV PRN ×2 (10:35→18:14)
--- NOTE | 2020-04-25 12:21 | CARD ---
MR#: [id number] Date of Study: 04/24/2020 Ordering Physician: CECILIO CARO, Referring Physician: CECILIO CARO, Tech: Alem Akbar APPROVED REPORT EXAM: Two-dimensional and M-mode echocardiogram with Doppler and color Doppler. Other Information Quality : AverageHR: 65bpm INDICATION Non STEMI RISK FACTORS Hypertension Smoking 2D DIMENSIONS RVDd3.4 (2.9-3.5cm)Left Atrium(2D)2.9 (1.6-4.0cm) IVSd1.2 (0.7-1.1cm)Aortic Root(2D)3.5 (2.0-3.7cm) LVDd4.9 (3.9-5.9cm)LVOT Diameter2.0 (1.8-2.4cm) PWd1.3 (0.7-1.1cm)LVDs3.8 (2.5-4.0cm) FS (%) 22.3 %SV51.4 ml Aortic Valve AoV Peak Bassam.103.0cm/sAoV VTI21.6cm AO Peak GR.4.2mmHgLVOT VTI 15.52cm AO Mean GR.3mmHg Mitral Valve MV E Gtwsbfmk00.3cm/sMV E Peak Gr.2mmHg MV DECEL [id number] A Ovhtafgi12.3cm/s MV E Mean Gr.1mmHgE/A Ratio0.8 TDI Lateral E' P. V6.69cm/sMedial E' P. V6.63cm/s E/Lateral E'9.3E/Medial E'9.4 Tricuspid Valve TR P. [id number]/sRAP [id number] TR Peak Gr.[id number] LEFT VENTRICLE The left ventricle is normal size. There is mild concentric left ventricular hypertrophy. The systoli c function is mildly impaired. The Ejection Fraction is estimated at 45%. There is slight global hypo kinesis of the left ventricle. Transmitral Doppler flow pattern is Grade I-abnormal relaxation patter n. RIGHT VENTRICLE The right ventricle is mildly dilated. There is normal right ventricular wall thickness. The right ve ntricular systolic function is normal. ATRIA The left atrium size is normal. The right atrium size is normal. The interatrial septum is intact wit h no evidence for an atrial septal defect or patent foramen ovale as noted on 2-D or Doppler imaging. AORTIC VALVE The aortic valve is normal in structure and function. Doppler and Color Flow revealed no significant aortic regurgitation. There is no significant aortic valvular stenosis. Calculated aortic valve area is 2.03 cm2 with maximum pressure gradient of 5 mmHg and mean pressure gradient of 3 mmHg. MITRAL VALVE The mitral valve is normal in structure and function. There is no evidence of mitral valve prolapse. There is no mitral valve stenosis. Doppler and Color Flow revealed trace mitral valve regurgitation. TRICUSPID VALVE The tricuspid valve is normal in structure and function. Doppler and Color Flow revealed trace tricus pid regurgitation with an estimated PAP of 40 mmHg. There is no tricuspid valve stenosis. PULMONIC VALVE The pulmonic valve is not well visualized. Doppler and Color Flow revealed no pulmonic valvular regur gitation. GREAT VESSELS The aortic root is normal in size. The IVC is dilated and collapses <50% with inspiration. PERICARDIAL EFFUSION There is no evidence of significant pericardial effusion. Critical Notification Critical Value: No <Conclusion> The left ventricle is normal size. The systolic function is mildly impaired. The Ejection Fraction is estimated at 45%. There is slight global hypokinesis of the left ventricle. There is mild concentric left ventricular hypertrophy. Doppler and Color Flow revealed no significant aortic regurgitation. There is no significant aortic valvular stenosis. Doppler and Color Flow revealed trace mitral valve regurgitation. Doppler and Color Flow revealed trace tricuspid regurgitation with an estimated PAP of 40 mmHg. Signed by : Francisco Barrera MD Electronically Approved : 04/25/2020 12:21:05
--- NOTE | 2020-04-25 13:24 | NUR ---
SS following for discharge planning. SS reviewed pt chart and discussed with pt RN. Pt is from home with spouse and is currently requiring oxygen. Pt on Heparin drip. Pt needing CABG. Transfer request being made to [facility] transfer center for [facility]. Pt RN initiated transfer. SS will assist with hospital transfer. SS faxed requested clinical to [facility] at [facility] transfer team, fax# [phone]. SS will continue to follow for discharge planning.
--- NOTE | 2020-04-25 14:41 | NUR ---
Patient downgraded to CVC status. Will leave in ICU. Patient to transfer to [facility] on 04/26 at 0900.
--- NOTE | 2020-04-25 14:57 | RAD ---
EXAM: Carotid Doppler sonogram. HISTORY: Coronary artery bypass grafting. Atherosclerosis. Preoperative evaluation. TECHNIQUE: Lindquist scale and color Doppler sonographic evaluation of the neck with spectral waveform analysis was performed and static images are submitted for review. FINDINGS: The peak systolic velocity within the right common carotid artery is 77 cm/sec. The peak systolic velocity within the right internal carotid artery is 56 cm/sec and the end diastolic velocity within the right internal carotid artery is 22 cm/sec. The right ICA/CCA ratio is 0.72. The peak systolic velocity within the left common carotid artery is 69 cm/sec. The peak systolic velocity within the left internal carotid artery is 89 cm/sec and the end diastolic velocity within the left internal carotid artery is 21 cm/sec. The left ICA/CCA ratio is 1.4. There is normal antegrade flow within both vertebral arteries. IMPRESSION: No Doppler evidence of hemodynamically significant stenosis. PQRS Compliance Statement - Stenosis calculations for CT, MR and conventional angiography are based upon measurement of the distal ICA diameter in accordance with the NASCET methodology. Stenosis calculations for carotid ultrasound studies are derived from validated velocity criteria which are known to correlate with the NASCET methodology. Electronically signed by: Courtney Juarez MD (04/25/2020 2:54 PM) [facility]
--- NOTE | 2020-04-25 16:04 | RAD ---
MR#: [id number] Date of Study: 04/25/2020 Ordering Physician: JOHN JULIAN, Referring Physician: JOHN JULIAN, Tech: Edenilson Hennessy MBA, RDMS, RVT, RDCS, RTR APPROVED REPORT Patient Location: [id number] Indications PRE-OP CABG Vein Measurements Great Saphenous Small Saphenous RightLeft RightLeft Saph-Fem. Junction 3.20mm5.10mmProximal 1.00mm1.70mm Mid Thigh 2.10mm1.90mmMid 1.40mm2.40mm Distal Thigh 2.10mm2.60mmDistal 1.70mm1.60mm Proximal Calf 2.50mm1.20mm Mid Calf 2.10mm1.50mm Distal Calf 2.30mm2.40mm Findings Patent bilateral saphenofemoral junctions, lesser and greater saphenous veins. The bilateral greater saphenous veins appear to be adequate bypass conduits. The bilateral lesser saphenous veins are les s than 2 mm and likely inadequate for bypass conduit. Critical Notification Critical Value: No <Conclusion> 1. Patent bilateral greater saphenous veins with dimensions as noted above which appear to be adequa te bypass conduits. 2. The bilateral lesser saphenous veins appear to be too small for bypass conduit. Signed by : Fan Luna, Electronically Approved : 04/25/2020 16:03:45
[2020-04-25] MEDS: TAMSULOSIN 0.4 MG CAP.ER.24H. PO SCH (20:15)
[2020-04-25] MEDS: ATORVASTATIN CALCIUM 40 MG TABLET. PO SCH (20:15)
--- NOTE | 2020-04-25 23:48 | NUR ---
hung new bag of heparin, did not change the rate. IV spreadsheet shows different however would not let this nurse correct it.
[2020-04-26] VITALS (9 sets, daily range): BP systolic 111–141; BP diastolic 62–91
[2020-04-26] MEDS: fentaNYL PF VIAL 100 MCG/2 ML VIAL IV PRN (00:21)
--- NOTE | 2020-04-26 07:10 | NUR ---
Attempted to contact [facility] transition to give report on pt however personnel states she does not have a bed at this time and will call the day nurse back.
--- NOTE | 2020-04-26 07:56 | NUR ---
SS following up with discharge planning. SS reviewed pt chart and discussed with pt RN. Pt accepted at [facility] pending bed availability. Accepting physician, Dr. Gerber Pérez. SS contacted [facility] transfer center, ; fax [phone], and was notified that they are working on a bed for pt and will notify pt RN and SS when bed available. Packet, ambulance form, and transfer form on the chart. SS contacted [facility] and requested CD's of imaging and reports as requested by [facility]. SS will continue to follow for discharge planning.
--- NOTE | 2020-04-26 08:19 | PDOC3 ---
Discharge Summary Visit Information Date of Admission: Apr 24, 2020 Date of Discharge: Apr 26, 2020 Admitting Diagnosis Comment: NSTEMI - with chest pain, EKG changes, trop 1.2. Heparin GTT. cardiology consulted. Stop methamphetamines CAD s/p previous PCI/stents in 2012 Hypertension - controlled Hyperlipidemia - cont statin Substance use disorder - previously on opioids, now on Methamphetamines. Used as recently as last night, uses every other day Tobacco abuse - counseled on cessation Alcohol use disorder - counseled on cutting back Hypokalemia - will check mag. Replace H/o Hep C - in remission Severe protein calorie malnutrition - will have data reporting analyst to see Final Diagnosis Problems Medical Problems: (1) NSTEMI (non-ST elevated myocardial infarction) Status: Acute NSTEMI - with chest pain, EKG changes, trop 1.2. Heparin GTT. cardiology consulted. Stop methamphetamines CAD s/p previous PCI/stents in 2012 Hypertension - controlled Hyperlipidemia - Substance use disorder - previously on opioids, now on Methamphetamines. 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 Brief Hospital Course Allergies Allergies Coded Allergies Type Severity Reaction Last Updated Verified No Known Drug Allergies 06/24/15 No Vital Signs Vital Signs Date Time Temp Pulse Resp B/P (MAP) Pulse Ox O2 Delivery O2 Flow Rate FiO2 04/26/20 07:00 83 24 111/72 (85) 94 Room Air 04/26/20 04:00 2.0 04/26/20 00:00 98.1 98.1 Lab Results Laboratory Tests Test 04/24/20 09:36 04/24/20 11:55 04/24/20 14:50 04/24/20 17:41 White Blood Count 6.8 x10^3/uL (4.0-11.0) Red Blood Count 4.26 x10^6/uL (4.30-5.70) Hemoglobin 14.2 g/dL (13.0-17.5) Hematocrit 41.7 % (39.0-53.0) Mean Corpuscular Volume 98 fL (79-100) Mean Corpuscular Hemoglobin 33 pg (25-35) Mean Corpuscular Hemoglobin Concent 34 g/dL (31-37) Red Cell Distribution Width 14.8 % (11.5-14.5) Platelet Count 205 x10^3/uL (140-400) Neutrophils (%) (Auto) 52 % (31-73) Lymphocytes (%) (Auto) 33 % (24-48) Monocytes (%) (Auto) 10 % (0-9) Eosinophils (%) (Auto) 4 % (0-3) Basophils (%) (Auto) 1 % (0-3) Neutrophils # (Auto) 3.5 x10^3/uL (1.8-7.7) Lymphocytes # (Auto) 2.3 x10^3/uL (1.0-4.8) Monocytes # (Auto) 0.7 x10^3/uL (0.0-1.1) Eosinophils # (Auto) 0.3 x10^3/uL (0.0-0.7) Basophils # (Auto) 0.1 x10^3/uL (0.0-0.2) Sodium Level 141 mmol/L (136-145) Potassium Level 3.2 mmol/L (3.5-5.1) Chloride Level 103 mmol/L (98-107) Carbon Dioxide Level 31 mmol/L (21-32) Anion Gap 7 (6-14) Blood Urea Nitrogen 16 mg/dL (8-26) Creatinine 1.0 mg/dL (0.7-1.3) Estimated GFR (Cockcroft-Gault) 77.0 BUN/Creatinine Ratio 16 (6-20) Glucose Level 118 mg/dL (70-99) Calcium Level 8.1 mg/dL (8.5-10.1) Magnesium Level 2.0 mg/dL (1.8-2.4) Total Bilirubin 0.3 mg/dL (0.2-1.0) Aspartate Amino Transf (AST/SGOT) 38 U/L (15-37) Alanine Aminotransferase (ALT/SGPT) 38 U/L (16-63) Alkaline Phosphatase 111 U/L (46-116) Troponin I Quantitative 1.288 ng/mL (0.000-0.055) 5.224 ng/mL (0.000-0.055) 8.546 ng/mL (0.000-0.055) BO-Nab-K-Type Natriuretic Peptide 167 pg/mL (0-124) Total Protein 6.5 g/dL (6.4-8.2) Albumin 2.8 g/dL (3.4-5.0) Albumin/Globulin Ratio 0.8 (1.0-1.7) Triglycerides Level 375 mg/dL (0-150) Cholesterol Level 218 mg/dL (0-200) LDL Cholesterol, Calculated 109 mg/dL (0-100) VLDL Cholesterol, Calculated 75 mg/dL (0-40) Non-HDL Cholesterol Calculated 184 mg/dL (0-129) HDL Cholesterol 34 mg/dL (40-60) Cholesterol/HDL Ratio 6.4 Thyroid Stimulating Hormone (TSH) 1.696 uIU/mL (0.358-3.74) Coronavirus (PCR) Not detected (Not Detected) SARS-CoV-2 Antigen (Rapid) Negative (NEGATIVE) Heparin Anti-Xa Act, Unfractionated 0.21 IU/mL (0.30-0.70) Test 04/24/20 22:31 04/25/20 06:00 04/25/20 12:20 04/25/20 18:00 Heparin Anti-Xa Act, Unfractionated 0.17 IU/mL (0.30-0.70) 0.49 IU/mL (0.30-0.70) 0.56 IU/mL (0.30-0.70) 0.35 IU/mL (0.30-0.70) White Blood Count 7.5 x10^3/uL (4.0-11.0) Red Blood Count 4.09 x10^6/uL (4.30-5.70) Hemoglobin 13.7 g/dL (13.0-17.5) Hematocrit 41.1 % (39.0-53.0) Mean Corpuscular Volume 101 fL (79-100) Mean Corpuscular Hemoglobin 33 pg (25-35) Mean Corpuscular Hemoglobin Concent 33 g/dL (31-37) Red Cell Distribution Width 14.8 % (11.5-14.5) Platelet Count 146 x10^3/uL (140-400) Neutrophils (%) (Auto) 63 % (31-73) Lymphocytes (%) (Auto) 24 % (24-48) Monocytes (%) (Auto) 9 % (0-9) Eosinophils (%) (Auto) 3 % (0-3) Basophils (%) (Auto) 1 % (0-3) Neutrophils # (Auto) 4.8 x10^3/uL (1.8-7.7) Lymphocytes # (Auto) 1.8 x10^3/uL (1.0-4.8) Monocytes # (Auto) 0.7 x10^3/uL (0.0-1.1) Eosinophils # (Auto) 0.2 x10^3/uL (0.0-0.7) Basophils # (Auto) 0.0 x10^3/uL (0.0-0.2) Sodium Level 140 mmol/L (136-145) Potassium Level 3.5 mmol/L (3.5-5.1) Chloride Level 105 mmol/L (98-107) Carbon Dioxide Level 25 mmol/L (21-32) Anion Gap 10 (6-14) Blood Urea Nitrogen 12 mg/dL (8-26) Creatinine 0.6 mg/dL (0.7-1.3) Estimated GFR (Cockcroft-Gault) 138.9 Glucose Level 91 mg/dL (70-99) Calcium Level 8.4 mg/dL (8.5-10.1) Test 04/26/20 00:40 Heparin Anti-Xa Act, Unfractionated 0.26 IU/mL (0.30-0.70) Laboratory Tests Test 04/25/20 12:20 04/25/20 18:00 04/26/20 00:40 Heparin Anti-Xa Act, Unfractionated 0.56 IU/mL (0.30-0.70) 0.35 IU/mL (0.30-0.70) 0.26 IU/mL (0.30-0.70) Brief Hospital Course Mr. Almonte is a 59 old male with past medical history of coronary artery disease who unfortunately also abuses tobacco alcohol and drugs was brought into our hospital in the ICU for further evaluation and treatment and elevation of his troponins. He was taken to the cardiac catheterization lab where he was found to have multivessel disease and a complete occlusion of the RCA as per report from nursing staff. Official report is not available at the present time of the time of this note. Patient is not complaining of chest pain he is not hemodynamically unstable his only complaint is right knee pain which is chronic in nature. It does not seem to be a pleural effusion or signs of active arthritis at the present time. Reassurance has been provided mother was at bedside and the patient will be transferred to [facility] in order t o proceed with definitive treatment. Greater than 35 minutes were spent in the discharge process the patient counseling coordination of care and arrangements for a safe discharge Physical exam lungs clear to auscultation with good inspiratory effort card iovascular exam S1-S2 regular rhythm no murmurs gallops or rubs neurological exam cranial nerves II 12 intact no motor or sensory deficits appreciated Assessment Assessment <Conclusion> The left ventricle is normal size. The systolic function is mildly impaired. The Ejection Fraction is estimated at 45%. There is slight global hypokinesis of the left ventricle. There is mild concentric left ventricular hypertrophy. Doppler and Color Flow revealed no significant aortic regurgitation. There is no significant aortic valvular stenosis. Doppler and Color Flow revealed trace mitral valve regurgitation. Doppler and Color Flow revealed trace tricuspid regurgitation with an estimated PAP of 40 mmHg. Signed by : Francisco Barrera MD Electronically Approved : 04/25/2020 12:21:05 Discharge Information Condition at Discharge: Improved Follow Up: Weeks Disposition/Orders: D/C to Another Facility Scheduled Amlodipine Besylate (Norvasc) 5 Mg Tablet, 5 MG PO DAILY, #30 Prescribed by: SAVANNAH DOUGLAS on 03/31/15 0924 Last Taken: Unknown Dose on 04/23/20 Last Action: Continued on 04/24/20 1503 by JIMI FIORE Aspirin (Aspirin) 81 Mg Tab.chew, Unknown Dose PO DAILY, #30 Ref 3 (Reported) Entered as Reported by: BEN MEHTA on 06/24/15 1237 Last Taken: Unknown Dose on 04/23/20 Last Action: Continued on 04/24/20 1503 by JIMI FIORE Atorvastatin Calcium (Atorvastatin Calcium) 40 Mg Tablet, 1 TAB PO DAILY, #30 Ref 5 (Reported) Entered as Reported by: Demario Chaudhary on 03/29/15 2212 Last Action: Continued on 04/24/20 165 by CIELO URBAN MD Nabumetone (Nabumetone) 500 Mg Tablet, 1 TAB PO BID for RA, #60 Ref 1 (Reported) Entered as Reported by: JIMI FIORE on 04/24/20 1501 Last Taken: Unknown Dose on 04/23/20 Last Action: New Order on 04/24/20 1501 by JIMI FIORE Pregabalin (Lyrica) 150 Mg Capsule, 1 CAP PO BID for peipheral neuropathy, #60 Ref 5 (Reported) Entered as Reported by: JIMI FIORE on 04/24/201500 Last Taken: Unknown Dose on 04/23/20 Last Action: New Order on 04/24/201500 by JIMI FIORE Tamsulosin Hcl (Tamsulosin Hcl) 0.4 Mg Cap.er.24h, 1 CAP PO DAILY, #30 Ref 5 (Reported) Entered as Reported by: Demario Chaudhary on 03/29/152208 Last Taken: Unknown Dose on 04/23/20 Last Action: Continued on 04/24/201651 by CIELO URBAN MD Discontinued Medications Clopidogrel Bisulfate (Plavix) 75 Mg Tablet, 75 MG PO DAILY for TO PREVENT BLOOD CLOTS, #30 Ref 0 (Reported) Entered as Reported by: Demario Chaudhary on 03/29/152156 Last Action: Discontinued on 04/24/201458 by JIMI FIORE Diclofenac Sodium (Diclofenac Sodium) 2.5 Ml Drops, 1 DROP EACHEYE QID, #5 Ref 1 (Reported) Entered as Reported by: Demario Chaudhary on 03/29/152212 Last Action: Discontinued on 04/24/201458 by JIMI FIORE Fluoxetine Hcl (Fluoxetine Hcl) 20 Mg Tablet, 1 TAB PO DAILY, #90 Ref 3 (Reported) Entered as Reported by: Demario Chaudhary on 03/29/152212 Last Action: Discontinued on 04/24/201458 by JIMI FIORE Fluoxetine Hcl (Prozac) 10 Mg Capsule, Unknown Dose PO DAILYWBKFT, #30 Ref 2 (Reported) Entered as Reported by: BEN MEHTA on 06/24/15 1237 Last Action: Discontinued on 04/24/201458 by JIMI FIORE Fluticasone Propionate (Fluticasone Propionate Nasal [place]) 16 Gm [place].susp, 2 SPRAY NS DAILY, #1 Ref 11 (Reported) Entered as Reported by: Demario Chaudhary on 03/29/152156 Last Action: Discontinued on 04/24/201458 by JIMI FIORE Gabapentin (Gabapentin ) 300 Mg Capsule, 1 CAP PO TID, #90 Ref 5 (Reported) Entered as Reported by: Demario Chaudhary on 03/29/150 Last Action: Discontinued on 04/24/201458 by JIMI FIORE Hydroxyzine Pamoate (Vistaril) 25 Mg Capsule, Unknown Dose PO BID, #60 Ref 1 (Reported) Entered as Reported by: BEN MEHTA on 06/24/15 1237 Last Action: Discontinued on 04/24/201458 by JIMI FIORE Oxycodone/Apap 10-325 (Percocet 10-325 Mg Tablet ) 1 Each Tablet, 1 TAB PO PRN Q6HRS PRN for PAIN, #40 (Reported) Entered as Reported by: Demario Chaudhary on 03/29/152157 Last Action: Discontinued on 04/24/201458 by JIMI FIORE Justicifation of Admission Dx: Justifications for Admission: Justification of Admission Dx: Yes WI: Acute NSTEMI ANTWON TIDWELL MD Apr 26, 2020 08:19
--- NOTE | 2020-04-26 08:42 | NUR ---
CD's and reports from [facility] in [facility]. [facility] transporting pt to [facility] at 0845.
--- NOTE | 2020-04-26 08:50 | NUR ---
Report called to Silvia charge aide nurse at [facility] emergency department. Patient sent by [facility].
== END 2020-04-26 08:50 | disposition short-term general hospital (02) | DRG 280 ==
LOC: ER 09:26 → 1 WEST ICU 11:40
PROVIDERS: ADMIT Internal Medicine; ATTEND Internal Medicine
PROC: 4A023N7 Measurement of Cardiac Sampling and Pressure, Left Heart, Percutaneous Approach (ICD-10-PCS; principal; 2020-04-25)
PROC: B2111ZZ Fluoroscopy of Multiple Coronary Arteries using Low Osmolar Contrast (ICD-10-PCS; 2020-04-25)
DX: I21.4 Non-ST elevation (NSTEMI) myocardial infarction (principal); E43 Unspecified severe protein-calorie malnutrition; E78.5 Hyperlipidemia, unspecified; E87.6 Hypokalemia; F10.10 Alcohol abuse, uncomplicated; F15.90 Other stimulant use, unspecified, uncomplicated; F17.210 Nicotine dependence, cigarettes, uncomplicated; I11.9 Hypertensive heart disease without heart failure; I25.10 Atherosclerotic heart disease of native coronary artery without angina pectoris; N40.0 Benign prostatic hyperplasia without lower urinary tract symptoms; Z82.49 Family history of ischemic heart disease and other diseases of the circulatory system; Z95.5 Presence of coronary angioplasty implant and graft; Z68.31 Body mass index [BMI] 31.0-31.9, adult; Z20.828 Contact with and (suspected) exposure to other viral communicable diseases
CPT/HCPCS: 36415; 71045; 80048; 80053; 80061; 83735; 83880; 84443; 84484; 85025; 85520; 87426; 93005; 93306; 93454; 93880; 93970; 94729; 99152; 99153; C1769; C1892; J1644; J2250; J2405; J3010; J3490; J7030; Q9967; G0378; U0003-CS

== ENCOUNTER → 2020-07-31 | Outpatient (CLI) | payer BC ==
[2020-04-26 08:00] VITALS: BP 122/77
[~2020-07-31] MED LIST changes: +CARV12.511 PO; +CRESTOR40 MG PO; +CYCL10TA2 PO; +FOLI0.8C PO; +IOHEXOL 180 MG/ML 10 ML VIAL. ONE; +NABU500T7 PO; +PREG150C PO; +methylPREDNISolone ACETATE 40 MG/ML VIAL. ONE; +methylPREDNISolone ACETATE 80 MG/ML VIAL. ONE
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
== END | disposition home or self-care (01) ==
LOC: PNCL 10:49
PROVIDERS: ATTEND Anesthesiology
DX: M54.5 Low back pain (principal); M79.605 Pain in left leg; I10 Essential (primary) hypertension; I25.10 Atherosclerotic heart disease of native coronary artery without angina pectoris; M19.90 Unspecified osteoarthritis, unspecified site; E78.00 Pure hypercholesterolemia, unspecified; M81.0 Age-related osteoporosis without current pathological fracture; F17.210 Nicotine dependence, cigarettes, uncomplicated; Z79.899 Other long term (current) drug therapy; Z98.890 Other specified postprocedural states; Z79.82 Long term (current) use of aspirin; Z72.89 Other problems related to lifestyle
CPT/HCPCS: 62323; J1030; J1040; Q9965